=== PATIENT | male | born 1945 | race Caucasian/White ===

== ENCOUNTER → 2016-11-09 | Outpatient (CLI) | payer MEDICARE, OTHER ==
[~2016-11-09] MED LIST: /ADVA50050; /ADVA50050 IN; /AMIO20TA; /AMIO20TA PO; /BISO10TA; /TAMS4CA; /TAMS4CA OR; /TIOT18INH; /WARF5TA; ACET300T PO; ACET65TA; ACET65TA OR; ALLO100T; ALLO100T OR; ALLO300T; AMBI10TA OR; AMBI12.52 PO; AVANDAMET; Albuterol; BETAMETHASONE VAL TOP; BIMA01SOL OU; CALC0.25 PO; CAPTO25TA PO; CARD60TA; CLOP75TA2 PO; COLA100C2 PO; COMBAER6 IN; COZA25TA8; COZA50TA18 OR; DEMA20TA; DEXI30CA PO; DRIS1CAP PO; EYETAB PO; GEMF600T; GEMF600T OR; GLUC850T OR; IMDU30TA PO; LASI80TA; LISI10TA4; LOPR50TA PO; LOVA1CAP16 PO; MECL12.5 OR; MOME50SP; NIAS500T2; NITR0.4S SL; NORV5TAB OR; OMACOR; POTA20TA2 PO; PRED10TA2; PRIL40CA OR; RANI150T PO; ROPI1TAB PO; SENO8.6T5 OR; SENOKOT S; SPIR25TA2 PO; TORS20TA2; TORS20TA2 OR; TORS20TA2 PO; TYLE325T5 PO; VITA250T OR; ZEGERID; atorvastatin PO; omega 3 OR
--- NOTE | 2016-11-13 13:45 | SLEEPCENT ---
DATE OF STUDY: 11/09/2016 ORDERING PROVIDER: Kingsley Quiroz MD Nocturnal polysomnography was performed for the retitration of pressure therapy in this patient with obstructive sleep apnea syndrome, currently utilizing bilevel pressure 10 over 6. For testing, a ResMed Quattro full face mask of medium size was used. Initial pressure of 10 over 6 was applied to the surface, and the lights were extinguished. 6 hours and 24 minutes of data were reviewed. There were only 54 minutes of sleep identified. Sleep latency was normal at 35 minutes. Rapid eye movement (REM) sleep was not achieved. Overall sleep architecture was poor. There was a prolonged period of awake between 11 p.m. and 1 a.m. and again between 1:15 and 2. Overall sleep efficiency was, therefore, very diminished at 14.3%. The patient's electrocardiogram (EKG) showed a sinus rhythm with 1st-degree AV block. Average heart rate 70 beats per minute. Electroencephalogram (EEG) showed coarsening in background consistent with the patient's symptom of persistent pain. No focal events were identified. Persistence of apneic events prompted an increase in bilevel pressure. Despite titration to higher pressures, good sleep progression was not established. Best sleep during this study was seen on a bilevel device inspiratory pressure 16 over expiratory pressure of 12. IMPRESSION: Obstructive sleep apnea syndrome (G47.33). RECOMMENDATION: The patient may benefit from an increase in pressure therapy to 16 over 12. However, given the minimal sleep available during this study and the patient's persistent pain, retesting once pain control has been achieved is advised.
== END ==
LOC: M SLEEP 19:08
PROVIDERS: ATTEND Nurse Practitioner Adult Health
DX: G47.33 Obstructive sleep apnea (adult) (pediatric) (principal)

== ENCOUNTER → 2016-11-11 | Outpatient (CLI) | payer MEDICARE, OTHER ==
--- NOTE | 2016-11-11 10:38 | REP ---
Clinical: Anemia. Technique: PA and lateral. Comparison: 06/21/2016. Findings: Mediastinum and cardiac silhouette are stable. Pacemaker unchanged in position. Lung uriarte demonstrate chronic bibasilar changes without obvious acute consolidation, effusion, or pneumothorax. Skeletal structures intact. Impression: Chronic-appearing changes. No obvious acute cardiopulmonary process. Signed by Gerry Melendez MD 11/11/2016 10:29 A
[2016-11-11 10:42] LABS: MEAN CORPUSCULAR HGB CONC 32.6 g/dl (32.0-36.5); MEAN CORPUSCULAR VOLUME 95.1 fl (80.0-96.0); RED CELL DISTRIBUTION WIDTH 15.7 % (11.5-14.5); WHITE BLOOD COUNT 8.6 K/mm3 (4.0-10.0)
[2016-11-11 11:29] LABS: ALBUMIN 3.8 GM/DL (3.2-5.2); ALBUMIN/GLOBULIN RATIO 1.19 (1.00-1.93); BILIRUBIN,TOTAL 0.5 MG/DL (0.2-1.0); CALCIUM LEVEL 9.4 MG/DL (8.8-10.2); CREATININE FOR GFR 2.09 MG/DL (0.70-1.30); GLOMERULAR FILTRATION RATE 33.3 (>42); POTASSIUM SERUM 4.1 MEQ/L (3.5-5.1)
== END ==
LOC: M LAB 09:29
PROVIDERS: ATTEND Family Medicine
DX: E03.9 Hypothyroidism, unspecified (principal); D64.9 Anemia, unspecified; Z79.899 Other long term (current) drug therapy

== ENCOUNTER → 2017-02-24 | Outpatient (CLI) | payer MEDICARE, OTHER ==
--- NOTE | 2017-02-24 15:06 | REP ---
Chest two views HISTORY: Heart failure Comparison: 11/11/2016 An increase in interstitial markings is present in the lower lobes consistent with chronic interstitial change. The cardiac silhouette is enlarged. The pulmonary vasculature is normal in appearance. The bony structure is intact. Cardiac pacemaker is present. Impression 1. Chronic interstitial change. 2. Cardiomegaly. Signed by Flako Graves MD 02/24/2017 08:02 A
[2017-02-24 17:01] LABS: MEAN CORPUSCULAR HEMOGLOBIN 30.2 pg (27.0-33.0); MEAN CORPUSCULAR HGB CONC 32.3 g/dl (32.0-36.5); MEAN CORPUSCULAR VOLUME 93.4 fl (80.0-96.0); RED CELL DISTRIBUTION WIDTH 14.7 % (11.5-14.5); WHITE BLOOD COUNT 7.4 K/mm3 (4.0-10.0)
[2017-02-24 17:04] LABS: CALCIUM LEVEL 8.3 MG/DL (8.8-10.2); CREATININE FOR GFR 1.73 MG/DL (0.70-1.30); GLOMERULAR FILTRATION RATE 41.4 (>42)
[2017-02-24 17:05] LABS: ALBUMIN 3.4 GM/DL (3.2-5.2); ALBUMIN/GLOBULIN RATIO 1.06 (1.00-1.93); BILIRUBIN,TOTAL 0.6 MG/DL (0.2-1.0); MAGNESIUM LEVEL 2.1 MG/DL (1.8-2.4); TOTAL PROTEIN 6.6 GM/DL (6.4-8.2)
== END ==
LOC: M RAD 06:31
PROVIDERS: ATTEND Physician Assistant
DX: I25.10 Atherosclerotic heart disease of native coronary artery without angina pectoris (principal); I50.32 Chronic diastolic (congestive) heart failure; I48.0 Paroxysmal atrial fibrillation; I51.7 Cardiomegaly; E78.2 Mixed hyperlipidemia

== ENCOUNTER 2017-03-30 11:29 | Inpatient (IN) | payer MEDICARE, OTHER ==
[~2017-03-30] VITALS: Ht 170.2 cm; Wt 112.2 kg
[2017-03-30] MEDS ORDERED: MIRA3350 PO (11:54)
[2017-03-30] MEDS ORDERED: TORS100T PO ×3 (11:54→17:07)
[2017-03-30] MEDS ORDERED: NITR4TASL SL ×2 (11:54→17:07)
[2017-03-30] MEDS ORDERED: ERGO500014 PO (11:54)
[2017-03-30] MEDS ORDERED: ARTISOL2 OP (11:55)
[2017-03-30] MEDS ORDERED: LEVO100T5 PO (11:55)
[2017-03-30] MEDS ORDERED: HYDR-3719 PO ×3 (11:55→17:07)
[2017-03-30] MEDS ORDERED: FERR325T88 PO (11:55)
[2017-03-30 12:56] LABS: BASO % 0.3 % (0.0-1.0); EOS # 0.1 K/mm3 (0.0-0.50); EOS % 1.1 % (0.0-3.0); LARGE UNSTAINED CELL # 0.2 K/mm3 (0.0-0.4); LARGE UNSTAINED CELL % 1.8 % (0.0-4.0); LYMPH # 1.8 K/mm3 (1.5-4.5); LYMPH % 16.6 % (24.0-44.0); MEAN CORPUSCULAR HEMOGLOBIN 31.8 pg (27.0-33.0); MEAN CORPUSCULAR HGB CONC 34.4 g/dl (32.0-36.5); MEAN CORPUSCULAR VOLUME 92.7 fl (80.0-96.0); MONO # 0.6 K/mm3 (0.0-0.8); MONO % 6.2 % (0.0-5.0); NEUTROPHILS # 7.3 K/mm3 (1.8-7.7); PLATELET COUNT, AUTOMATED 181 k/mm3 (150-450); RED CELL DISTRIBUTION WIDTH 15.4 % (11.5-14.5); WHITE BLOOD COUNT 9.9 K/mm3 (4.0-10.0)
[2017-03-30] MEDS ORDERED: methylPREDNISolone INJ 125 MG/2 ML VIAL (J2930) IV ONE (13:00)
[2017-03-30] MEDS: IPRATROPIUM 0.5MG/ALBUTEROL 2.5MG INH SOL UD 3ML (DUONEB)(J7620) NEB PRN ×3 (13:12→13:37)
--- NOTE | 2017-03-30 13:18 | REP ---
REASON: Cough and dyspnea. COMPARISON: 02/24/2017 The technique utilized in obtaining the radiograph has magnified the cardiac silhouette and accentuated the interstitial markings. Dual-chamber bipolar pacemaker device, status quo. Previous median sternotomy and cardiomegaly, status quo. Increased right hilar fullness compared to the prior exam with chronic fibrotic changes, particularly at the lung bases. There is no change in the osseous structures. IMPRESSION: Possible right infrahilar pneumonia or adenopathy. It is difficult to evaluate on this limited portable exam. There are other findings as described above representing chronic change. Consider followup with chest CT if clinically relevant. Signed by Luis Carlos Cook DO 03/30/2017 03:22 P
[2017-03-30 13:22] LABS: ABG BASE EXCESS 0.3 (-2.0-2.0); ABG HCO3 24.4 MEQ/L (22.0-26.0); ABG PARTIAL PRESSURE CO2 37.5 mmHg (35.0-45.0); ABG PARTIAL PRESSURE O2 55.8 mmHg (75.0-100.0); ABG STANDARD HCO3 24.6 MEQ/L (22.0-26.0); ABG TOTAL CO2 25.5 MEQ/L (23.0-31.0); ABG pH (ARTERIAL) 7.431 UNITS (7.350-7.450)
[2017-03-30 13:28] LABS: ALBUMIN 3.3 GM/DL (3.2-5.2); ALBUMIN/GLOBULIN RATIO 1.03 (1.00-1.93); BILIRUBIN,DIRECT 0.2 MG/DL (0.0-0.2); BILIRUBIN,TOTAL 0.6 MG/DL (0.2-1.0); CALCIUM LEVEL 8.7 MG/DL (8.8-10.2); CREATININE FOR GFR 1.9 MG/DL (0.70-1.30); GLOMERULAR FILTRATION RATE 37.2 (>42); POTASSIUM SERUM 3.9 MEQ/L (3.5-5.1); TOTAL PROTEIN 6.5 GM/DL (6.4-8.2)
[2017-03-30 15:14] VITALS: O2SAT 85
[2017-03-30] MEDS ORDERED: IPRATROPIUM 0.5MG/ALBUTEROL 2.5MG INH SOL UD 3ML (DUONEB)(J7620) As Ordered ONE (15:25)
[2017-03-30] MEDS ORDERED: ALBUTEROL SULFATE 2.5 MG/0.5 ML INH NEB SOLN INH ONE (15:30)
[2017-03-30] MEDS ORDERED: IPRATROPIUM 0.5MG/ALBUTEROL 2.5MG INH SOL UD 3ML (DUONEB)(J7620) NEB ONE (15:45)
[2017-03-30] MEDS ORDERED: cefTRIAXone SOD 1 GM in D5W MINI-BAG PLUS 50 ML IV ONE (16:00)
[2017-03-30] MEDS ORDERED: AZITHROMYCIN INJ 500 MG, VIAL MATE ADAPTER 1 EACH in D5W 250 ML IV ONE (16:00)
--- NOTE | 2017-03-30 16:13 | REP ---
CT CHEST WITHOUT IV CONTRAST: CT chest was performed without IV contrast with sagittal and coronal reconstruction images. Comparison made with prior study of 01/09/2014. There are mild bibasilar infiltrates and atelectasis, right greater than left. There are small bilateral effusion, right greater than left. Heart is upper limits of normal in size. There is no pericardial effusion. No gross adenopathy is seen. There are moderate atherosclerotic calcifications of the thoracic aorta. There are degenerative changes of the spine. Visualized upper abdominal structures are grossly unremarkable. There are a couple of tiny calcified granulomas in the lungs with scattered fibrotic changes. IMPRESSION: Mild bibasilar infiltrates/atelectasis with small effusions, right greater than left. No gross adenopathy. Signed by Davion Garrett MD 03/30/2017 04:20 P
--- NOTE | 2017-03-30 16:32 | HPEPDOC ---
General Date of Admission 03/30/17 4:20pm Chief Complaint The patient is a 71-year-old male admitted with a reason for visit of Difficulty Breathing. Source: Patient Exam Limitations: No limitations Timing/Duration: Week(s) (4) Severity: Moderate Associated Symptoms: Chest Pain, Cough, Shortness of breath History of Present Illness 71-year old male for one month history of worsening shortness of breath. Patient states he had a cough productive of brown sputum which has improved. He states roughly one month ago he had a 'breathing test' which appears to be a sleep study. He states he uses a 'breathing machine' at night, which appears to be CPAP, and states he is only partially compliant with secondary to discomfort. He states he sleeps with head of bed elevated, and 2 pillows, but it appears this has been chronic for the past year. He states he was advised to implement these sleep modifications by his PCP to alleviate pain from his hernia. He states he also had an exercise stress test one month ago, which as per patient showed no significant changes. He does not use supplemental oxygen at home. PCP-Dr. Meneses, supply assistant-Dr. Swan, [employer]-. Home Medications Scheduled (Dexilant) 30 Mg Cap, 30 MG PO DAILY, (Reported) Acetaminophen/Hydrocodone (Hydrocodone/Acetaminophen 10-325 mg) 1 Tab Tab, 1 TAB PO BID, (Reported) Amlodipine Besylate (Amlodipine Besylate) 10 Mg Tab, 10 MG PO DAILY, (Reported) Artificial Tears (Artificial Tears) 1.4 % Lara, 1 DROP OU QHS, (Reported) Atorvastatin Calcium (Atorvastatin Calcium) 80 Mg Tab, 80 MG PO QPM, (Reported) Bimatoprost (Lumigan) 50 Drop/2.5 Ml Lara, 1 DROP OU QHS, (Reported) Calcitriol (Rocaltrol) 0.5 Mcg Cap, 0.5 MCG PO DAILY, (Reported) Clopidogrel Bisulfate (Plavix) 75 Mg Tab, 75 MG PO QPM, (Reported) Docusate Sodium (Colace) 100 Mg Cap, 100 MG PO BID, (Reported) Ergocalciferol (Vitamin D) 50,000 Unit Cap, 50,000 UNIT PO Q2WK, (Reported) TAKES EVERY OTHER SUNDAY Ferrous Sulfate (Ferrous Sulfate) 325 Mg Tab, 325 MG PO DAILY, (Reported) Isosorbide Mononitrate (Isosorbide Mononitrate ER) 30 Mg Tab, 30 MG PO DAILY, ( Reported) Levothyroxine Sodium (Levoxyl) 100 Mcg Tab, 100 MCG PO DAILY, (Reported) Ropinirole Hydrochloride (Ropinirole HCl) 1 Mg Tab, 1 MG PO QAM, (Reported) Ropinirole Hydrochloride (Ropinirole HCl) 1 Mg Tab, 2 MG PO QHS, (Reported) Spironolactone (Spironolactone) 25 Mg Tab, 25 MG PO DAILY, (Reported) Torsemide (Torsemide) 100 Mg Tab, 100 MG PO QAM, (Reported) Torsemide (Torsemide) 100 Mg Tab, 50 MG PO QPM, (Reported) Zolpidem Tartrate (Zolpidem Tartrate) 10 Mg Tab, 10 MG PO QHS, (Reported) Scheduled PRN Acetaminophen/Hydrocodone (Hydrocodone/Acetaminophen 10-325 mg) 1 Tab Tab, 1 TAB PO DAILY PRN for PAIN, (Reported) Calcium Carbonate (Tums) 500 Mg Chw, 500 MG PO PRN PRN for HEARTBURN/INDIGESTION , (Reported) Nitroglycerin (Nitrostat) 0.4 Mg Subl, 0.4 MG SL Q5MP PRN for CHEST PAIN, ( Reported) Polyethylene Glycol (Miralax) 1 Pow Pow, 17 GM PO DAILY PRN for CONSTIPATION, ( Reported) Simethicone (Gas-X) 80 Mg Chw, 80 MG PO PRN PRN for GAS PAIN, (Reported) Allergies Coded Allergies: Bisoprolol (Verified Allergy, Unknown, 01/31/13) Aspirin (Verified Adverse Reaction, Mild, VOMITS, 01/31/13) Past Medical History Medical History 1. CAD/CABG - 3vessel disease - 1992 2. PPM - 2013 - indication not clear 3. HTN 4. DM - controlled with diet as per patient 5. Dyslipidemia 6. Hypothyroidism 8. CHF - unknown type - records to be obtained 9. TOMMY - recent diagnosis - uses BiPAP, not fully compliant 10. History of nicotine abuse Social History * Smoker: former Smoker Alcohol: Denies Drugs: denies Review of Symptoms Constitutional: Denies: Chills, Fever, Malaise, Night Sweats, Weakness, Fatigue , Weight Loss, Lethargy, Other Eyes: Denies: Pain, Vision change, Conjunctivae inflammation, Eyelid inflammation, Redness, Other ENT: Denies: Head Aches, Ear Pain, Dysphagia, Sinus Congestion, Post Nasal Drip , Sore Throat, Epistaxis, Other Symptoms Skin: Denies: Rash, Lesions, Jaundice, Bruising, Itching, Dry, Breakdown, Nail Changes, Other Pulmonary: Reports: Dyspnea, Cough, Pleuritic Chest Pain, Denies: Other Symptoms Cardiovascular: Denies: Chest Pain, Palpitations, Orthopnea, Paroxysmal Noc. Dyspnea, Edema, Lt Headedness, Other Symptoms Gastrointestinal: Denies: Nausea, Vomiting, Abdominal Pain, Diarrhea, Constipation, Melena, Hematochezia, Other Symptoms Genitourinary: Denies: Dysuria, Frequency, Incontinence, Hematuria, Retention, Other Symptoms Hematologic: Denies: Bruising, Bleeding Excessively, Petecchia, Purpura, Enlarged Lymph Nodes, Other Hematologic Endocrine: Denies: Polydipsia, Polyphagia, Polyuria, Heat Intolerance, Cold Intolerance, Other Endocrine Sx Physical Examination General Exam: Positive: Alert, Cooperative, No Acute Distress Eye Exam: Positive: PERRLA, Conjunctiva & lids normal, EOMI, Negative: Sclera icteric ENT Exam: Positive: Atraumatic Neck Exam: Positive: Supple Chest Exam: Positive: Normal air movement, Wheezing, Other (bilateral crackles , mild expiratory wheezes) Heart Exam: Positive: Rate Normal, Regular Rhythm Telemetry: Positive: No significant arrhythmia Abdomen Exam: Positive: Normal bowel sounds, Soft, Other (obese), Negative: Tenderness Extremity Exam: Positive: Edema Psych Exam: Positive: Oriented x 3 Vital Signs Vital Signs Date Time Temp Pulse Resp B/P (MAP) Pulse Ox O2 Delivery O2 Flow Rate FiO2 03/30/17 15:14 85 Room Air 03/30/17 14:32 190/76 (114) 03/30/17 14:29 70 20 03/30/17 13:15 3.0 95 03/30/17 11:30 98.7 Laboratory Data Labs 24H Laboratory Tests 2 03/30/17 12:43: White Blood Count 9.9, Red Blood Count 4.07L, Hemoglobin 13.0L, Hematocrit 37.7L , Mean Corpuscular Volume 92.7, Mean Corpuscular Hemoglobin 31.8, Mean Corpuscular Hemoglobin Concent 34.4, Red Cell Distribution Width 15.4H, Platelet Count 181, Neutrophils (%) (Auto) 74.0H, Lymphocytes (%) (Auto) 16.6L, Monocytes (%) (Auto) 6.2H, Eosinophils (%) (Auto) 1.1, Basophils (%) (Auto) 0.3 , Neutrophils # (Auto) 7.3, Lymphocytes # (Auto) 1.8, Monocytes # (Auto) 0.6, Eosinophils # (Auto) 0.1, Basophils # (Auto) 0.0, Large Unclassified Cells % 1.8 , Large Unclassified Cells # 0.2, D-Dimer, Quantitative 436.0, Anion Gap 7L, Glomerular Filtration Rate 37.2L, Lactic Acid Level 1.5, Calcium Level 8.7L, Aspartate Amino Transf (AST/SGOT) 19, Alanine Aminotransferase (ALT/SGPT) 34, Alkaline Phosphatase 70, Total Bilirubin 0.6, Direct Bilirubin 0.2, Total Creatine Kinase 52, Creatine Kinase MB 1.4, Creatine Kinase MB Relative Index 2.69, Troponin I 0.04, B-Type Natriuretic Peptide 461H, Total Protein 6.5, Albumin 3.3, Albumin/Globulin Ratio 1.03 03/30/17 13:13: Blood Gas Bicarbonate Standard 24.6, Arterial Blood pH 7.431, Arterial Blood Partial Pressure CO2 37.5, Arterial Blood Partial Pressure O2 55.8L, Arterial Blood Total CO2 25.5, Arterial Blood HCO3 24.4, Arterial Blood Base Excess 0.3, Arterial Blood Oxygen Saturation 88.7L CBC/BMP Laboratory Tests 03/30/17 12:43 Red Blood Count 4.07 L, Mean Corpuscular Volume 92.7, Mean Corpuscular Hemoglobin 31.8, Mean Corpuscular Hemoglobin Concent 34.4, Red Cell Distribution Width 15.4 H, Neutrophils (%) (Auto) 74.0 H, Lymphocytes (%) (Auto ) 16.6 L, Monocytes (%) (Auto) 6.2 H, Eosinophils (%) (Auto) 1.1, Basophils (%) (Auto) 0.3, Neutrophils # (Auto) 7.3, Lymphocytes # (Auto) 1.8, Monocytes # ( Auto) 0.6, Eosinophils # (Auto) 0.1, Basophils # (Auto) 0.0 Microbiology Microbiology 03/30/17 Blood Culture, Received Pending 03/30/17 Blood Culture, Received Pending Problems (1) Hypoxia Status: Acute Response to Treatment: Progressing Discussed With: Patient Problem Specific Plan: Monitor Clinically, Repeat Labs, Repeat Tests Problem Text: Likely secondary to decompensated CHF. Telemetry monitoring, fluid restriction, IV lasix, I'O's, daily weights, TTE, serial cardiac markers. (2) CAD (coronary artery disease) Status: Chronic Discussed With: Patient Problem Text: s/p cabg with triple vessel disease 1992 Continue plavix, imdur, lipitor, captopril (3) HTN (hypertension) Status: Chronic Discussed With: Patient Problem Specific Plan: Monitor Clinically Problem Text: continue norvasc, imdur, captopril (4) Diabetes Status: Chronic Discussed With: Patient Problem Specific Plan: Repeat Labs Problem Text: patient states has been controlled with diet. continue modified diet for now. (5) Dyslipidemia Status: Chronic Problem Text: continue lipitor 80 (6) Hypothyroidism Status: Chronic Discussed With: Patient Problem Text: continue synthroid Plan / VTE VTE Prophylaxis Ordered?: Yes (mechanical) Plan Diet: Continue Current Activity: Continue Current Therapy: PT Respiratory: Wean Oxygen Diagnostics: Check Labs, Repeat Labs in AM, TTE MIKE RUDOLPH MD Mar 30, 2017 16:32
[2017-03-30] MEDS ORDERED: PLAV75TA38 PO (16:58)
[2017-03-30] MEDS ORDERED: AMLO10TA2 PO (16:58)
[2017-03-30] MEDS ORDERED: ALLO10TA PO (16:58)
[2017-03-30] MEDS ORDERED: CAPT125TA PO (16:58)
[2017-03-30] MEDS ORDERED: ARTI99.0 OU (16:58)
[2017-03-30] MEDS ORDERED: ZOLP10TA2 PO (16:58)
[2017-03-30] MEDS ORDERED: ROCA0.5C PO (16:58)
[2017-03-30] MEDS ORDERED: VITA50003 PO (16:59)
[2017-03-30] MEDS ORDERED: COLA100C3 PO (16:59)
[2017-03-30] MEDS ORDERED: DEXI30CA PO (16:59)
[2017-03-30] MEDS ORDERED: TUMS500C PO (17:07)
[2017-03-30] MEDS ORDERED: POTA10CA PO (17:07)
[2017-03-30] MEDS ORDERED: SPIR25TA2 PO (17:07)
[2017-03-30] MEDS ORDERED: ISOS30TA4 PO (17:07)
[2017-03-30] MEDS ORDERED: FERR325T PO (17:07)
[2017-03-30] MEDS ORDERED: ATOR1TAB18 PO (17:07)
[2017-03-30] MEDS ORDERED: MIRA33504 PO (17:07)
[2017-03-30] MEDS ORDERED: LEVO100T54 PO (17:07)
[2017-03-30] MEDS ORDERED: BIMA01SOL OU (17:07)
[2017-03-30] MEDS ORDERED: ROPI1TAB PO ×2 (17:07)
[2017-03-30] MEDS ORDERED: GAS-80CH PO (17:07)
[2017-03-30] MEDS ORDERED: NITROGLYCERIN 0.4 MG SUBL TABLET SL PRN (17:15)
[2017-03-30] MEDS: FUROSEMIDE 40 MG/4 ML VIAL (J1940) IV SCH ×2 (20:30→20:58)
[2017-03-30 20:45] VITALS: BP 162/58
[2017-03-30 20:59] VITALS: BP 162/58
[2017-03-30] MEDS ORDERED: POLYVINYL ALCOHOL OPHTH SOLN 15 ML(LIQUITEARS) OU SCH (21:00)
[2017-03-30] MEDS ORDERED: ATORVASTATIN 20 MG TAB PO SCH (21:00)
[2017-03-30] MEDS ORDERED: rOPINIRole 1MG TAB PO SCH (21:00)
[2017-03-30] MEDS ORDERED: DOCUSATE SODIUM 100 MG CAP PO SCH (21:00)
[2017-03-30] MEDS ORDERED: zolPIDEM TARTRATE 10MG TAB PO SCH (21:00)
[2017-03-30] MEDS ORDERED: CLOPIDOGREL 75 MG TAB PO SCH (21:00)
[2017-03-30] MEDS ORDERED: CAPTOpril 12.5 MG TAB PO SCH (21:00)
[2017-03-30] MEDS ORDERED: PERCOCET 5MG/325MG TAB PO PRN ×2 (21:15)
[2017-03-30 23:00] VITALS: BP 170/50
[2017-03-30 23:45] VITALS: BP 160/54
[2017-03-31] MEDS: FUROSEMIDE 40 MG/4 ML VIAL (J1940) IV SCH (00:40)
--- NOTE | 2017-03-31 02:23 | DSES ---
DATE OF ADMISSION: 03/30/2017 DATE OF DISCHARGE: 03/31/2017 DISCHARGE DIAGNOSIS: Unstable angina. SECONDARY DIAGNOSES: 1. Decompensated congestive heart failure. 2. Obstructive sleep apnea. 3. Hypoxia. 4. Hypertension. 5. Coronary artery disease. 6. Diabetes. 7. Dyslipidemia. 8. Hypothyroidism. 9. Atrial fibrillation with sick sinus syndrome. HOSPITAL COURSE: The patient presented on the afternoon of 03/30/2017, with progressively worsening shortness of breath with rust-colored sputum. He was recently diagnosed with obstructive sleep apnea. He did complain of orthopnea. He also described intermittent compliance with medications and continuous positive airway pressure (CPAP). He tells me that he had also reportedly had an exercise stress test done 1 month ago, which showed no significant change. This was done through his coat agent, Dr. Swan. The patient was diagnosed with decompensated congestive heart failure. He has a history of congestive heart failure with preserved ejection fraction. He was admitted to the progressive care unit and was diuresed. The patient had been experiencing burning pain in his chest this afternoon while walking to the bank, alleviated with rest. SUBJECTIVE: The patient reports that he is feeling better after diuresis, but still having shortness of breath. He denies burning in the chest at rest, but tells me if he were to get up and walk right now it would certainly come back. He denies lightheadedness, dizziness, nausea, vomiting, fevers or chills. OBJECTIVE: VITAL SIGNS: Temperature 99.1, pulse 72, respiratory rate 20, blood pressure 160/54, oxygen saturation 96% on nasal CPAP. GENERAL: He is an obese, elderly man lying in bed at a 45-degree angle. He appears mildly tachypneic, but no acute distress. HEENT: Cranial nerves II-XII are grossly intact. Difficult to assess for elevation of central venous pressure (CVP) secondary to body habitus and a large neck. CARDIOVASCULAR EXAMINATION: S1, S2. He is not tachycardic. RESPIRATORY EXAMINATION: Diminished breath sounds at the bases and distant secondary to body habitus. ABDOMEN: Grossly obese. EXTREMITIES: No clubbing, cyanosis. There is edema bilaterally. LABORATORY STUDIES: WBC 9.9, hemoglobin 13.0, hematocrit 37.7, platelet count 181. Chemistry panel: Sodium 142, potassium 3.9, chloride 106, bicarbonate 29, BUN 45, creatinine 1.9 which approximately is baseline. His first set of troponin was 0.04, a repeat second set was 14.9. BNP was slightly elevated at 461. Blood cultures were drawn. IMAGING: He did have a CT scan of the chest, which revealed mild bibasilar infiltrates/atelectasis with small effusions, right greater than left. No gross adenopathy. ASSESSMENT AND PLAN: This is a 71-year-old man with likely unstable angina and decompensated congestive heart failure secondary to unstable angina. Unstable angina. The patient's EKG is in atrial (A) paced rhythm, but I do appreciate ST depressions in V3, V4 in the stat EKG repeated at this time. Although he is clinically feeling better at rest, given his quickly rising troponin, there is certainly concern for unstable angina and non-ST elevation myocardial infarction given his ST depressions, although they are in the setting of an A paced rhythm. I did speak with Dr. Ortiz, the interventionalist microphone boom operator for [facility], who agrees and has accepted the patient in transfer. The hospital does have beds and paperwork has been filled out at discharge has been completed. I did discuss the transfer with the patient and necessity for it and also the possibility that he may require hemodialysis following cardiac catheterization secondary to his chronic kidney disease, which is at its baseline. He is aware of all this and understands the risks and benefits and is agreeable for transfer. MEDICATIONS: At the time of discharge: - hydrocodone/acetaminophen 10/325 one tablet twice a day - Norvasc 10 mg daily - artificial tears one drop each eye at bedtime - atorvastatin 80 mg every evening - Lumigan one drop each eye daily at bedtime - calcitriol 0.5 mcg daily - Tums 500 mg as needed for heartburn and indigestion - Plavix 75 mg every evening - Dexilant 30 mg daily - Colace 100 mg twice a day - vitamin D 50,000 units every 2 weeks on Sunday - ferrous sulfate 325 mg daily - isosorbide mononitrate 30 mg daily - Synthroid 100 mcg daily - Nitrostat 0.4 mg sublingually every 5 minutes as needed for chest pain - MiraLAX powder 17 grams daily as needed for constipation - ropinirole 1 mg every morning daily and 2 mg at bedtime - simethicone 80 mg as needed for gas pain - aldactone 25 mg daily - torsemide 100 mg every morning and 50 mg every evening - Ambien 10 mg nightly For the time being he should hold his normal allopurinol 200 mg daily, captopril 12.5 mg at bedtime as he is likely to undergo cardiac catheterization. Greater than 1 hour spent organizing safe disposition and transfer of care.
[2017-03-31 03:09] VITALS: BP 180/74
[2017-03-31] MEDS ORDERED: LEVOTHYROXINE 0.1 MG TAB (100 MCG) PO SCH (06:00)
--- NOTE | 2017-03-31 07:26 | ECGEPIP ---
Stationary ECG Study [facility] - ED Test Date: 2017-03-30 Pat Name: MIRTA DICKSON Department: Room: - Gender: M Court Assistant: chaparrita : 1945 Requested By: FELIX Sahu Order Number: [id number] Reading MD: Alda Chatman Measurements Intervals [place] Rate: 69 P: 253 LA: 258 QRS: 77 QRSD: 112 T: 255 QT: 414 QTc: 446 Interpretive Statements ELECTRONIC ATRIAL PACEMAKER ELECTRONIC VENTRICULAR PACEMAKER ABNORMAL RHYTHM ECG NSTTW ABNORMALITY Electronically Signed On 03-31-2017 7:26:05 EDT by Alda Chatman
[2017-03-31] MEDS ORDERED: amLODIPine 10 MG TAB PO SCH (09:00)
[2017-03-31] MEDS ORDERED: ISOSORBIDE MON. (IMDUR) 30 MG XR TAB PO SCH (09:00)
[2017-03-31] MEDS ORDERED: CALCITRIOL 0.25 MCG CAP (S0169) PO SCH (09:00)
[2017-03-31] MEDS ORDERED: ALLOPURINOL 100 MG TAB PO SCH (09:00)
[2017-03-31] MEDS ORDERED: FERROUS SULFATE 325MG TAB PO SCH (09:00)
[2017-03-31] MEDS ORDERED: rOPINIRole 1MG TAB PO SCH (09:00)
--- NOTE | 2017-04-01 16:32 | ECGEPIP ---
Stationary ECG Study [facility] Test Date: 2017-03-31 Pat Name: MIRTA DICKSON Department: Room: [place] [address] Gender: M Harpsichord Maker: ARIS PEÑAB: 1945 Requested By: CHIDI KRISHNAMURTHY Order Number: [id number] Reading MD: Abelardo Parr Measurements Intervals [place] Rate: 66 P: 246 PA: 181 QRS: 78 QRSD: 92 T: 248 QT: 452 QTc: 476 Interpretive Statements ATRIAL PACED RHYTHM ST DEVIATION AND MODERATE T-WAVE ABNORMALITY, CONSIDER ANTEROLATERAL AND INFERIOR ISCHEMIA SINCE 03/30/17 T WAVE ABNORMALITIES ARE NEW Electronically Signed On 04-01-2017 16:32:11 EDT by Abelardo Parr
== END 2017-03-31 03:27 | disposition short-term general hospital (02) | DRG 291 ==
LOC: M ED 14:18 → M ED INP 16:13 → M PCU 20:41
PROVIDERS: ADMIT Internal Medicine; ATTEND Internal Medicine
DX: I13.0 Hypertensive heart and chronic kidney disease with heart failure and stage 1 through stage 4 chronic kidney disease, or unspecified chronic kidney disease (principal); I50.33 Acute on chronic diastolic (congestive) heart failure; G47.33 Obstructive sleep apnea (adult) (pediatric); E11.9 Type 2 diabetes mellitus without complications; E78.5 Hyperlipidemia, unspecified; E03.9 Hypothyroidism, unspecified; I25.10 Atherosclerotic heart disease of native coronary artery without angina pectoris; Z79.899 Other long term (current) drug therapy

== ENCOUNTER → 2017-04-09 | Outpatient (CLI) | payer MEDICARE, OTHER ==
[~2017-04-09] MED LIST changes: +ALLO10TA PO; +AMLO10TA2 PO; +ARTI99.0 OU; +ARTISOL2 OP; +ATOR1TAB18 PO; +CAPT125TA PO; +COLA100C3 PO; +ERGO500014 PO; +FERR325T PO; +FERR325T88 PO; +GAS-80CH PO; +HYDR-3719 PO; +ISOS30TA4 PO; +LEVO100T5 PO; +LEVO100T54 PO; +MIRA3350 PO; +MIRA33504 PO; +NITR4TASL SL; +PLAV75TA38 PO; +POTA10CA PO; +ROCA0.5C PO; +TORS100T PO; +TUMS500C PO; +VITA50003 PO; +ZOLP10TA2 PO
[2017-04-09 16:11] LABS: CALCIUM LEVEL 8.8 MG/DL (8.8-10.2); CREATININE FOR GFR 2.54 MG/DL (0.70-1.30); GLOMERULAR FILTRATION RATE 26.6 (>42); POTASSIUM SERUM 3.5 MEQ/L (3.5-5.1)
== END ==
LOC: M LAB 13:45
PROVIDERS: ATTEND Internal Medicine Interventional Cardiology
DX: I10 Essential (primary) hypertension (principal)

== ENCOUNTER → 2017-04-23 | Outpatient (REF) | payer MEDICARE, OTHER ==
[2017-04-23 14:53] LABS: FREE T4 1.17 NG/DL (0.76-1.46)
== END ==
LOC: M LAB REF 13:13
PROVIDERS: ATTEND Internal Medicine Nephrology
DX: E03.9 Hypothyroidism, unspecified (principal)

== ENCOUNTER → 2017-04-26 | Outpatient (CLI) | payer MEDICARE, OTHER ==
[~2017-04-26] MED LIST changes: -ATOR1TAB18 PO; +ATOR80TA59 PO; -COLA100C3 PO; +COLA100C5 PO; +DEXI30CA2 PO; +FERR1TAB8 PO; -FERR325T PO; +PLAV1TAB2 PO; -PLAV75TA38 PO; +VITA1CAP40 PO; -VITA50003 PO
[2017-04-26 14:50] LABS: BASO # 0.1 K/mm3 (0.0-0.2); BASO % 0.9 % (0.0-1.0); EOS # 0.1 K/mm3 (0.0-0.50); EOS % 1.3 % (0.0-3.0); LARGE UNSTAINED CELL # 0.3 K/mm3 (0.0-0.4); LARGE UNSTAINED CELL % 3.2 % (0.0-4.0); LYMPH # 2.2 K/mm3 (1.5-4.5); LYMPH % 24.8 % (24.0-44.0); MEAN CORPUSCULAR HGB CONC 32.5 g/dl (32.0-36.5); MEAN CORPUSCULAR VOLUME 95.3 fl (80.0-96.0); MONO # 0.5 K/mm3 (0.0-0.8); MONO % 6.1 % (0.0-5.0); NEUTROPHILS # 5.7 K/mm3 (1.8-7.7); NEUTROPHILS % 63.7 % (36.0-66.0); PLATELET COUNT, AUTOMATED 231 k/mm3 (150-450); RED CELL DISTRIBUTION WIDTH 17.7 % (11.5-14.5); WHITE BLOOD COUNT 8.9 K/mm3 (4.0-10.0)
[2017-04-26 15:28] LABS: ALBUMIN 3.6 GM/DL (3.2-5.2); CALCIUM LEVEL 8.8 MG/DL (8.8-10.2); CREATININE FOR GFR 2.1 MG/DL (0.70-1.30); GLOMERULAR FILTRATION RATE 33.1 (>42); MAGNESIUM LEVEL 2.7 MG/DL (1.8-2.4); PHOSPHORUS LEVEL 4.4 MG/DL (2.5-4.9); POTASSIUM SERUM 4.2 MEQ/L (3.5-5.1); URIC ACID 6.5 MG/DL (3.5-7.2)
== END ==
LOC: M LAB 14:02
PROVIDERS: ATTEND Internal Medicine Nephrology
DX: N18.3 Chronic kidney disease, stage 3 (moderate) (principal); N25.81 Secondary hyperparathyroidism of renal origin; M10.9 Gout, unspecified; E83.42 Hypomagnesemia

== ENCOUNTER → 2017-05-31 | Outpatient (CLI) | payer MEDICARE, OTHER ==
[2017-05-31 19:00] LABS: REASON FOR REVIEW COMPREHENSIVE REVIEW
[2017-05-31 19:02] LABS: MEAN CORPUSCULAR HEMOGLOBIN 30.4 pg (27.0-33.0); MEAN CORPUSCULAR HGB CONC 31.5 g/dl (32.0-36.5); MEAN CORPUSCULAR VOLUME 96.6 fl (80.0-96.0); PLATELET COUNT, AUTOMATED 229 k/mm3 (150-450); RETIC HEMOGLOBIN CONTENT CHr 27.5 PG (24-36); RETICULOCYTE ABSOLUTE ADVIA212 117 x10(9)/L (17-77); WHITE BLOOD COUNT 6.8 K/mm3 (4.0-10.0)
[2017-05-31 19:16] LABS: PERCENT SATURATION 4.1 % (19.7-50.0)
[2017-06-01 12:22] LABS: PRETREATED FOLATE FOR RBCFOL 18.1 NG/ML
== END ==
LOC: M SMT 15:56
PROVIDERS: ATTEND Physician Assistant
DX: D64.9 Anemia, unspecified (principal)

== ENCOUNTER 2017-06-01 10:16 | Outpatient (CLI) | payer MEDICARE, OTHER ==
[2017-06-01] MEDS ORDERED: FUROSEMIDE 100 MG/10 ML VIAL (J1940) IV ONE (11:00)
[2017-06-01] MEDS ORDERED: IRON SUCROSE 25 MG in NS 50 ML IV ONE (12:00)
[2017-06-01] MEDS ORDERED: IRON SUCROSE 475 MG in NS 250 ML IV ONE (13:00)
== END 2017-06-01 16:55 | disposition home or self-care (01) ==
LOC: M OPCLI4PV 10:16 → M MSPAV 10:17 → M OPCLI4PV 16:55
PROVIDERS: ATTEND Physician Assistant
DX: D50.9 Iron deficiency anemia, unspecified (principal); Z88.8 Allergy status to other drugs, medicaments and biological substances; Z79.899 Other long term (current) drug therapy
CPT/HCPCS: 36430; J1940; P9016

== ENCOUNTER 2017-06-04 10:41 | Outpatient (CLI) | payer MEDICARE, OTHER ==
[2017-06-04] VITALS (8 sets, daily range): BP systolic 149–176; BP diastolic 54–74
[~2017-06-04] VITALS: Ht 170.2 cm; Wt 104.5 kg
[2017-06-04] MEDS ORDERED: IRON SUCROSE 25 MG in NS 50 ML IV ONE (12:00)
[2017-06-04] MEDS ORDERED: IRON SUCROSE 475 MG in NS 250 ML IV ONE (13:15)
== END 2017-06-04 17:45 | disposition home or self-care (01) ==
LOC: M OPCLIPED 10:41 → M PED 10:44 → M OPCLIPED 17:45
PROVIDERS: ATTEND Physician Assistant
DX: D50.9 Iron deficiency anemia, unspecified (principal); Z88.8 Allergy status to other drugs, medicaments and biological substances; Z79.899 Other long term (current) drug therapy
CPT/HCPCS: 96365; 96366; J1756

== ENCOUNTER → 2017-06-05 | Outpatient (CLI) | payer MEDICARE, OTHER ==
[2017-06-05 13:56] LABS: MEAN CORPUSCULAR HEMOGLOBIN 30.3 pg (27.0-33.0); MEAN CORPUSCULAR HGB CONC 32.5 g/dl (32.0-36.5); MEAN CORPUSCULAR VOLUME 93.2 fl (80.0-96.0); RED CELL DISTRIBUTION WIDTH 16.2 % (11.5-14.5); WHITE BLOOD COUNT 11.2 K/mm3 (4.0-10.0)
== END ==
LOC: M SMT 08:58
PROVIDERS: ATTEND Physician Assistant
DX: D50.8 Other iron deficiency anemias (principal)

== ENCOUNTER → 2017-07-04 | Outpatient (CLI) | payer OTHER ==
[2017-07-04 13:44] LABS: MEAN CORPUSCULAR HEMOGLOBIN 30.2 pg (27.0-33.0); MEAN CORPUSCULAR HGB CONC 32.9 g/dl (32.0-36.5); MEAN CORPUSCULAR VOLUME 91.8 fl (80.0-96.0); RED CELL DISTRIBUTION WIDTH 16.3 % (11.5-14.5)
[2017-07-04 13:50] LABS: ALBUMIN 3.7 GM/DL (3.2-5.2); CALCIUM LEVEL 10.6 MG/DL (8.8-10.2); CREATININE FOR GFR 2.57 MG/DL (0.70-1.30); GLOMERULAR FILTRATION RATE 26.2 (>42); PHOSPHORUS LEVEL 4.1 MG/DL (2.5-4.9); POTASSIUM SERUM 4.4 MEQ/L (3.5-5.1)
== END ==
LOC: M SMT 09:39
PROVIDERS: ATTEND Physician Assistant
DX: D50.8 Other iron deficiency anemias (principal); I50.32 Chronic diastolic (congestive) heart failure

== ENCOUNTER → 2017-10-03 | Outpatient (CLI) | payer OTHER ==
[2017-10-03 18:15] LABS: ALBUMIN 3.8 GM/DL (3.2-5.2); ALBUMIN/GLOBULIN RATIO 1.12 (1.00-1.93); BILIRUBIN,TOTAL 0.6 MG/DL (0.2-1.0); CALCIUM LEVEL 8.9 MG/DL (8.8-10.2); CREATININE FOR GFR 2.09 MG/DL (0.70-1.30); GLOMERULAR FILTRATION RATE 33.2 (>42); MAGNESIUM LEVEL 2.6 MG/DL (1.8-2.4); POTASSIUM SERUM 4.5 MEQ/L (3.5-5.1); TOTAL PROTEIN 7.2 GM/DL (6.4-8.2)
[2017-10-03 18:30] LABS: MEAN CORPUSCULAR HEMOGLOBIN 29.6 pg (27.0-33.0); MEAN CORPUSCULAR HGB CONC 32.5 g/dl (32.0-36.5); MEAN CORPUSCULAR VOLUME 91.2 fl (80.0-96.0); PLATELET COUNT, AUTOMATED 201 10^3/uL (150-450); RED CELL DISTRIBUTION WIDTH 19.3 % (11.5-14.5); WHITE BLOOD COUNT 10.3 10^3/uL (4.0-10.0)
--- NOTE | 2017-10-04 06:33 | REP ---
CHEST X-RAY: CLINICAL: Atrial fibrillation. TECHNIQUE: PA and lateral. COMPARISON: 03/30/2017. FINDINGS: Cardiomegaly is again appreciated. Pacemaker in stable position. Evidence for prior sternotomy and CABG again noted. The lung uriarte demonstrate prominent pulmonary vasculature and increased interstitial markings suggesting chronic pulmonary vascular congestion. No obvious focal consolidation or effusion. No pneumothorax. Skeletal structures are intact. IMPRESSION: Stable cardiomegaly and chronic pulmonary vascular congestion suggested. Signed by Gerry Melendez MD 10/05/2017 08:52 A
== END ==
LOC: M SMT 12:06
PROVIDERS: ATTEND Physician Assistant
DX: I48.0 Paroxysmal atrial fibrillation (principal); I50.32 Chronic diastolic (congestive) heart failure; E78.2 Mixed hyperlipidemia; D50.8 Other iron deficiency anemias

== ENCOUNTER → 2018-01-21 | Outpatient (CLI) | payer MEDICARE, OTHER ==
[2018-01-21 18:07] LABS: ALBUMIN 3.8 GM/DL (3.2-5.2); ANION GAP 8 MEQ/L (8-16); BLOOD UREA NITROGEN 83 MG/DL (7-18); CALCIUM LEVEL 11.4 MG/DL (8.8-10.2); CARBON DIOXIDE LEVEL 29 MEQ/L (21-32); CHLORIDE LEVEL 100 MEQ/L (98-107); CREATININE FOR GFR 2.89 MG/DL (0.70-1.30); GLOMERULAR FILTRATION RATE 22.8 (>42); GLUCOSE, FASTING 115 MG/DL (70-100); PHOSPHORUS LEVEL 3.5 MG/DL (2.5-4.9); POTASSIUM SERUM 4.1 MEQ/L (3.5-5.1); SODIUM LEVEL 137 MEQ/L (136-145)
[2018-01-21 18:25] LABS: HEMATOCRIT 41.2 % (42.0-52.0); HEMOGLOBIN 13.4 g/dl (14.0-18.0); MEAN CORPUSCULAR HEMOGLOBIN 30.6 pg (27.0-33.0); MEAN CORPUSCULAR HGB CONC 32.5 g/dl (32.0-36.5); MEAN CORPUSCULAR VOLUME 94.1 fl (80.0-96.0); PLATELET COUNT, AUTOMATED 195 10^3/uL (150-450); RED BLOOD COUNT 4.38 10^6/uL (4.30-6.10); RED CELL DISTRIBUTION WIDTH 15.3 % (11.5-14.5); WHITE BLOOD COUNT 10.3 10^3/uL (4.0-10.0)
== END ==
LOC: M SMT 11:35
DX: R55 Syncope and collapse (principal); I50.32 Chronic diastolic (congestive) heart failure
CPT/HCPCS: 80069

== ENCOUNTER → 2018-02-25 | Outpatient (CLI) | payer MEDICARE, OTHER ==
[2018-02-25 13:16] LABS: ALBUMIN 3.5 GM/DL (3.2-5.2); ANION GAP 9 MEQ/L (8-16); BLOOD UREA NITROGEN 70 MG/DL (7-18); CALCIUM LEVEL 8.7 MG/DL (8.8-10.2); CARBON DIOXIDE LEVEL 27 MEQ/L (21-32); CHLORIDE LEVEL 99 MEQ/L (98-107); CREATININE FOR GFR 2.39 MG/DL (0.70-1.30); GLOMERULAR FILTRATION RATE 28.4 (>42); GLUCOSE, FASTING 116 MG/DL (70-100); PHOSPHORUS LEVEL 3.4 MG/DL (2.5-4.9); POTASSIUM SERUM 4.2 MEQ/L (3.5-5.1); SODIUM LEVEL 135 MEQ/L (136-145)
== END ==
LOC: M SMT 09:20
DX: R42 Dizziness and giddiness (principal); I50.32 Chronic diastolic (congestive) heart failure
CPT/HCPCS: 80069

== ENCOUNTER 2018-03-05 21:08 | Inpatient (IN) | payer MEDICARE, OTHER ==
[2018-03-05] MEDS: ADVAIR HFA 230/21MCG INHALER INH (21:00)
[2018-03-05] MEDS: HumaLOG INSULIN (NovoLOG) PER UNIT SC (21:00)
[2018-03-05 22:09] LABS: BASO % 0.2 % (0.0-1.0); EOS % 0.2 % (0.0-3.0); HEMATOCRIT 34.4 % (42.0-52.0); IMMATURE GRANULOCYTE % 0.6 % (0-3.0); LYMPH # 0.8 10^3/uL (1.5-4.5); LYMPH % 5.1 % (24.0-44.0); MEAN CORPUSCULAR HEMOGLOBIN 30.6 pg (27.0-33.0); MEAN CORPUSCULAR VOLUME 95.6 fl (80.0-96.0); MONO # 1.6 10^3/uL (0.0-0.8); MONO % 9.9 % (0.0-5.0); NEUTROPHILS # 13.7 10^3/uL (1.8-7.7); PLATELET COUNT, AUTOMATED 160 10^3/uL (150-450); RED CELL DISTRIBUTION WIDTH 16.1 % (11.5-14.5); VENOUS BASE EXCESS -6.6 (-2.0-2.0); VENOUS HCO3 17.8 MEQ/L (23.0-27.0); VENOUS O2 SATURATION 90.9 % (60.0-80.0); VENOUS PARTIAL PRESSURE CO2 32.1 mmHg (38.0-50.0); VENOUS PARTIAL PRESSURE O2 63.1 mmHg (30.0-50.0); VENOUS PH 7.362 UNITS (7.330-7.430); VENOUS TOTAL CO2 18.8 MEQ/L (24.0-28.0); WHITE BLOOD COUNT 16.4 10^3/uL (4.0-10.0)
[2018-03-05 22:31] LABS: ANION GAP 13 MEQ/L (8-16); BLOOD UREA NITROGEN 87 MG/DL (7-18); CALCIUM LEVEL 8.5 MG/DL (8.8-10.2); CARBON DIOXIDE LEVEL 22 MEQ/L (21-32); CHLORIDE LEVEL 98 MEQ/L (98-107); CK-MB VALUE MASS 1.9 NG/ML (<3.6); CPK CREATINE PHOSPHOKINASE 91 U/L (39-308); CREATININE FOR GFR 3.34 MG/DL (0.70-1.30); GLOMERULAR FILTRATION RATE 19.3 (>42); GLUCOSE, FASTING 155 MG/DL (70-100); MB/CK RELATIVE INDEX 2.08 (< OR =4); POTASSIUM SERUM 4.6 MEQ/L (3.5-5.1); SODIUM LEVEL 133 MEQ/L (136-145); TROPONIN I 0.26 NG/ML (< 0.10)
[2018-03-05] MEDS: IPRATROPIUM 0.5MG/ALBUTEROL 2.5MG INH SOL UD 3ML (DUONEB)(J7620) NEB ×3 (23:21→23:51)
[2018-03-05] MEDS: FUROSEMIDE 100 MG/10 ML VIAL (J1940) IV (23:22)
[2018-03-06] MEDS ORDERED: GLUCOSE 4 GM CHEW TABLET PO (00:15)
[2018-03-06] MEDS ORDERED: DEXTROSE 50% 50 ML SYRINGE IV (00:15)
[2018-03-06] MEDS ORDERED: GLUCAGON FOR INJ 1 MG VIAL (J1610) SC (00:15)
[2018-03-06] MEDS ORDERED: ACETAMINOPHEN TAB 650MG DOSE (2X325MG) PO (00:15)
[2018-03-06] MEDS ORDERED: NITROGLYCERIN 0.4 MG SUBL TABLET SL (00:30)
[2018-03-06] MEDS ORDERED: IPRATROPIUM 0.5MG/ALBUTEROL 2.5MG INH SOL UD 3ML (DUONEB)(J7620) NEB (00:30)
[2018-03-06] MEDS: IPRATROPIUM 0.5MG/ALBUTEROL 2.5MG INH SOL UD 3ML (DUONEB)(J7620) NEB ×4 (01:11→20:48)
[2018-03-06 02:00] LABS: CK-MB VALUE MASS 2.1 NG/ML (<3.6); CPK CREATINE PHOSPHOKINASE 99 U/L (39-308); MB/CK RELATIVE INDEX 2.12 (< OR =4); TROPONIN I 0.43 NG/ML (< 0.10)
[2018-03-06] MEDS ORDERED: SLF 3 ML SYR IV (02:00)
[2018-03-06] MEDS: ATORVASTATIN 20 MG TAB PO ×2 (02:20→20:41)
[2018-03-06] MEDS: rOPINIRole 1MG TAB PO ×2 (02:21→20:42)
[2018-03-06] MEDS: POLYVINYL ALCOHOL OPHTH SOLN 15 ML(LIQUITEARS) OU ×2 (02:21→20:42)
[2018-03-06] MEDS: LevoFLOXacin IV 500 MG in APPROPRIATE DILUENT 1 EA IV (03:48)
[2018-03-06 05:46] LABS: CK-MB VALUE MASS 2.8 NG/ML (<3.6); CPK CREATINE PHOSPHOKINASE 101 U/L (39-308); MB/CK RELATIVE INDEX 2.77 (< OR =4); TROPONIN I 0.73 NG/ML (< 0.10)
[2018-03-06] MEDS: FUROSEMIDE 100 MG/10 ML VIAL (J1940) IV ×3 (05:55→17:25)
[2018-03-06] MEDS: HEPARIN SOD (PORCINE) 5000 UNITS/ML VIAL SC ×3 (05:56→20:42)
[2018-03-06] MEDS: LEVOTHYROXINE 88MCG TABLET (0.088 MG) PO (05:56)
[2018-03-06] MEDS: SLF 3 ML SYR IV ×3 (05:56→20:42)
[2018-03-06] MEDS: ADVAIR HFA 230/21MCG INHALER INH ×2 (07:32→21:00)
[2018-03-06 07:51] LABS: BEDSIDE GLUCOSE 125 MG/DL (83-110)
[2018-03-06] MEDS: SPIRONOLACTONE 25 MG TAB PO (08:19)
[2018-03-06] MEDS: AMIODARONE 200 MG TAB (PACERONE) PO ×2 (08:19→20:42)
[2018-03-06] MEDS: MULTIVITAMINS/MINERALS THERAP 1 TAB PO (08:19)
[2018-03-06] MEDS: HumaLOG INSULIN (NovoLOG) PER UNIT SC ×4 (08:19→20:43)
[2018-03-06] MEDS: DOCUSATE SODIUM 100 MG CAP PO ×2 (08:19→20:42)
[2018-03-06] MEDS: ALLOPURINOL 100 MG TAB PO (08:19)
[2018-03-06] MEDS: FERROUS SULFATE 325MG TAB PO (08:19)
[2018-03-06 11:33] LABS: BEDSIDE GLUCOSE 152 MG/DL (83-110)
[2018-03-06 12:29] LABS: CPK CREATINE PHOSPHOKINASE 113 U/L (39-308); TROPONIN I 0.63 NG/ML (< 0.10)
[2018-03-06 12:30] LABS: CK-MB VALUE MASS 3.7 NG/ML (<3.6); MB/CK RELATIVE INDEX 3.27 (< OR =4)
[2018-03-06] MEDS: CLOPIDOGREL 75 MG TAB PO (13:38)
[2018-03-06 16:36] LABS: BEDSIDE GLUCOSE 151 MG/DL (83-110)
[2018-03-06 21:01] LABS: BEDSIDE GLUCOSE 124 MG/DL (83-110)
[2018-03-07] MEDS: zolPIDEM TARTRATE 10MG TAB PO (01:33)
[2018-03-07] MEDS: IPRATROPIUM 0.5MG/ALBUTEROL 2.5MG INH SOL UD 3ML (DUONEB)(J7620) NEB ×4 (02:00→20:25)
[2018-03-07] MEDS: HEPARIN SOD (PORCINE) 5000 UNITS/ML VIAL SC ×3 (05:22→20:58)
[2018-03-07] MEDS: LEVOTHYROXINE 88MCG TABLET (0.088 MG) PO (05:23)
[2018-03-07] MEDS: SLF 3 ML SYR IV ×3 (05:23→20:58)
[2018-03-07] MEDS: FUROSEMIDE 100 MG/10 ML VIAL (J1940) IV ×5 (05:23→23:51)
[2018-03-07 05:34] LABS: BASO % 0.1 % (0.0-1.0); EOS # 0.1 10^3/uL (0.0-0.50); EOS % 0.5 % (0.0-3.0); HEMATOCRIT 31.6 % (42.0-52.0); HEMOGLOBIN 10.4 g/dl (13.5-17.5); IMMATURE GRANULOCYTE % 0.4 % (0-3.0); LYMPH # 0.7 10^3/uL (1.5-4.5); LYMPH % 4.7 % (24.0-44.0); MEAN CORPUSCULAR HEMOGLOBIN 30.7 pg (27.0-33.0); MEAN CORPUSCULAR HGB CONC 32.9 g/dl (32.0-36.5); MEAN CORPUSCULAR VOLUME 93.2 fl (80.0-96.0); MONO # 1.4 10^3/uL (0.0-0.8); MONO % 10.2 % (0.0-5.0); NEUTROPHILS # 11.8 10^3/uL (1.8-7.7); NEUTROPHILS % 84.1 % (36.0-66.0); PLATELET COUNT, AUTOMATED 154 10^3/uL (150-450); RED BLOOD COUNT 3.39 10^6/uL (4.30-6.10)
[2018-03-07 05:54] LABS: ALBUMIN 2.6 GM/DL (3.2-5.2); ALBUMIN/GLOBULIN RATIO 0.67 (1.00-1.93); ALKALINE PHOSPHATASE 52 U/L (45-117); ALT/SGPT 85 U/L (12-78); ANION GAP 9 MEQ/L (8-16); AST/SGOT 102 U/L (7-37); BILIRUBIN,TOTAL 0.9 MG/DL (0.2-1.0); BLOOD UREA NITROGEN 102 MG/DL (7-18); CALCIUM LEVEL 9.1 MG/DL (8.8-10.2); CARBON DIOXIDE LEVEL 26 MEQ/L (21-32); CHLORIDE LEVEL 99 MEQ/L (98-107); CREATININE FOR GFR 3.29 MG/DL (0.70-1.30); GLOMERULAR FILTRATION RATE 19.7 (>42); GLUCOSE, FASTING 101 MG/DL (70-100); MAGNESIUM LEVEL 2.9 MG/DL (1.8-2.4); POTASSIUM SERUM 4.2 MEQ/L (3.5-5.1); SODIUM LEVEL 134 MEQ/L (136-145); TOTAL PROTEIN 6.5 GM/DL (6.4-8.2)
[2018-03-07] MEDS: ALLOPURINOL 100 MG TAB PO (08:03)
[2018-03-07] MEDS: AMIODARONE 200 MG TAB (PACERONE) PO ×2 (08:03→20:52)
[2018-03-07] MEDS: SPIRONOLACTONE 25 MG TAB PO (08:03)
[2018-03-07] MEDS: HumaLOG INSULIN (NovoLOG) PER UNIT SC ×4 (08:03→20:49)
[2018-03-07] MEDS: MULTIVITAMINS/MINERALS THERAP 1 TAB PO (08:04)
[2018-03-07] MEDS: FERROUS SULFATE 325MG TAB PO (08:04)
[2018-03-07] MEDS: DOCUSATE SODIUM 100 MG CAP PO ×2 (08:04→20:52)
[2018-03-07 09:41] LABS: TROPONIN I 0.37 NG/ML (< 0.10)
[2018-03-07] MEDS: ADVAIR HFA 230/21MCG INHALER INH ×2 (11:27→21:00)
[2018-03-07] MEDS: CLOPIDOGREL 75 MG TAB PO (13:04)
[2018-03-07 19:36] LABS: BEDSIDE GLUCOSE 140 MG/DL (83-110)
[2018-03-07 20:48] LABS: BEDSIDE GLUCOSE 120 MG/DL (83-110)
[2018-03-07] MEDS: POLYVINYL ALCOHOL OPHTH SOLN 15 ML(LIQUITEARS) OU (20:51)
[2018-03-07] MEDS: rOPINIRole 1MG TAB PO (20:52)
[2018-03-07] MEDS: ATORVASTATIN 20 MG TAB PO (20:52)
[2018-03-07 22:46] LABS: ANION GAP 11 MEQ/L (8-16); BLOOD UREA NITROGEN 110 MG/DL (7-18); CALCIUM LEVEL 8.8 MG/DL (8.8-10.2); CARBON DIOXIDE LEVEL 24 MEQ/L (21-32); CHLORIDE LEVEL 99 MEQ/L (98-107); CREATININE FOR GFR 3.34 MG/DL (0.70-1.30); GLOMERULAR FILTRATION RATE 19.3 (>42); GLUCOSE, FASTING 117 MG/DL (70-100); PHOSPHORUS LEVEL 4.6 MG/DL (2.5-4.9); POTASSIUM SERUM 4.3 MEQ/L (3.5-5.1); SODIUM LEVEL 134 MEQ/L (136-145)
[2018-03-08] MEDS: FUROSEMIDE 100 MG/10 ML VIAL (J1940) IV ×3 (00:55→17:38)
[2018-03-08] MEDS: IPRATROPIUM 0.5MG/ALBUTEROL 2.5MG INH SOL UD 3ML (DUONEB)(J7620) NEB ×4 (02:00→20:00)
[2018-03-08] MEDS: LevoFLOXacin IV 250 MG in APPROPRIATE DILUENT 1 EA IV (03:53)
[2018-03-08] MEDS: HEPARIN SOD (PORCINE) 5000 UNITS/ML VIAL SC ×3 (05:29→21:48)
[2018-03-08] MEDS: LEVOTHYROXINE 88MCG TABLET (0.088 MG) PO (05:29)
[2018-03-08] MEDS: SLF 3 ML SYR IV ×3 (05:30→21:50)
[2018-03-08 05:34] LABS: HEMATOCRIT 32.5 % (42.0-52.0); HEMOGLOBIN 10.5 g/dl (13.5-17.5); MEAN CORPUSCULAR HEMOGLOBIN 30.3 pg (27.0-33.0); MEAN CORPUSCULAR HGB CONC 32.3 g/dl (32.0-36.5); MEAN CORPUSCULAR VOLUME 93.7 fl (80.0-96.0); PLATELET COUNT, AUTOMATED 181 10^3/uL (150-450); RED BLOOD COUNT 3.47 10^6/uL (4.30-6.10); RED CELL DISTRIBUTION WIDTH 15.9 % (11.5-14.5); WHITE BLOOD COUNT 11.7 10^3/uL (4.0-10.0)
[2018-03-08 05:36] LABS: ADD MANUAL DIFFER YES; DIFF SLIDE NUMBER 28; POSITIVE MORPH POS FLAG
[2018-03-08 05:56] LABS: ALBUMIN 2.6 GM/DL (3.2-5.2); ALBUMIN/GLOBULIN RATIO 0.63 (1.00-1.93); ALKALINE PHOSPHATASE 69 U/L (45-117); ALT/SGPT 152 U/L (12-78); ANION GAP 12 MEQ/L (8-16); AST/SGOT 157 U/L (7-37); BILIRUBIN,TOTAL 0.6 MG/DL (0.2-1.0); BLOOD UREA NITROGEN 110 MG/DL (7-18); CALCIUM LEVEL 8.7 MG/DL (8.8-10.2); CARBON DIOXIDE LEVEL 24 MEQ/L (21-32); CHLORIDE LEVEL 99 MEQ/L (98-107); GLOMERULAR FILTRATION RATE 20.3 (>42); GLUCOSE, FASTING 104 MG/DL (70-100); MAGNESIUM LEVEL 3.3 MG/DL (1.8-2.4); POTASSIUM SERUM 4.3 MEQ/L (3.5-5.1); SODIUM LEVEL 135 MEQ/L (136-145); TOTAL PROTEIN 6.7 GM/DL (6.4-8.2)
[2018-03-08 06:12] LABS: ATYPICAL LYMPH 1 % (0-5); LYMPHOCYTES 4 % (16-52); MONOCYTES 14 % (0-8); NEUTROPHILS 81 % (35-75)
[2018-03-08 06:13] LABS: ANISOCYTOSIS 1+; PLATELET ESTIMATE NORMAL (NORMAL)
[2018-03-08 06:14] LABS: POLYCHROMASIA 1+
[2018-03-08] MEDS: ADVAIR HFA 230/21MCG INHALER INH ×2 (08:08→20:48)
[2018-03-08] MEDS: ALLOPURINOL 100 MG TAB PO (09:37)
[2018-03-08] MEDS: HumaLOG INSULIN (NovoLOG) PER UNIT SC ×4 (09:37→21:00)
[2018-03-08] MEDS: AMIODARONE 200 MG TAB (PACERONE) PO ×2 (09:37→21:47)
[2018-03-08] MEDS: MULTIVITAMINS/MINERALS THERAP 1 TAB PO (09:37)
[2018-03-08] MEDS: SPIRONOLACTONE 25 MG TAB PO (09:37)
[2018-03-08] MEDS: DOCUSATE SODIUM 100 MG CAP PO ×2 (09:37→21:45)
[2018-03-08] MEDS: FERROUS SULFATE 325MG TAB PO (09:37)
[2018-03-08 12:20] LABS: BEDSIDE GLUCOSE 127 MG/DL (83-110)
[2018-03-08] MEDS: CLOPIDOGREL 75 MG TAB PO (15:27)
[2018-03-08 17:28] LABS: BEDSIDE GLUCOSE 153 MG/DL (83-110)
[2018-03-08 20:44] LABS: NT-PRO BNP 30808 PG/ML (<125)
[2018-03-08] MEDS: ATORVASTATIN 20 MG TAB PO (21:45)
[2018-03-08] MEDS: rOPINIRole 1MG TAB PO (21:46)
[2018-03-08] MEDS: metOLazone 5 MG TAB PO (21:46)
[2018-03-08] MEDS: POLYVINYL ALCOHOL OPHTH SOLN 15 ML(LIQUITEARS) OU (21:50)
[2018-03-09] MEDS: FUROSEMIDE 100 MG/10 ML VIAL (J1940) IV ×5 (00:21→23:52)
[2018-03-09] MEDS: IPRATROPIUM 0.5MG/ALBUTEROL 2.5MG INH SOL UD 3ML (DUONEB)(J7620) NEB ×4 (01:50→20:00)
[2018-03-09 05:04] LABS: HEMATOCRIT 30.9 % (42.0-52.0); HEMOGLOBIN 10.2 g/dl (13.5-17.5); MEAN CORPUSCULAR HEMOGLOBIN 30.9 pg (27.0-33.0); MEAN CORPUSCULAR VOLUME 93.6 fl (80.0-96.0); PLATELET COUNT, AUTOMATED 167 10^3/uL (150-450); RED CELL DISTRIBUTION WIDTH 16.1 % (11.5-14.5)
[2018-03-09 05:13] LABS: ADD MANUAL DIFFER YES; DIFF SLIDE NUMBER 19; POSITIVE MORPH POS FLAG
[2018-03-09 05:19] LABS: ALBUMIN 2.5 GM/DL (3.2-5.2); ALBUMIN/GLOBULIN RATIO 0.63 (1.00-1.93); ALKALINE PHOSPHATASE 71 U/L (45-117); ALT/SGPT 162 U/L (12-78); ANION GAP 11 MEQ/L (8-16); AST/SGOT 144 U/L (7-37); BILIRUBIN,TOTAL 0.6 MG/DL (0.2-1.0); BLOOD UREA NITROGEN 116 MG/DL (7-18); CALCIUM LEVEL 8.5 MG/DL (8.8-10.2); CARBON DIOXIDE LEVEL 24 MEQ/L (21-32); CHLORIDE LEVEL 102 MEQ/L (98-107); CREATININE FOR GFR 3.11 MG/DL (0.70-1.30); GLUCOSE, FASTING 105 MG/DL (70-100); MAGNESIUM LEVEL 3.2 MG/DL (1.8-2.4); SODIUM LEVEL 137 MEQ/L (136-145); TOTAL PROTEIN 6.5 GM/DL (6.4-8.2)
[2018-03-09 05:37] LABS: ANISOCYTOSIS 1+; BANDS 1 % (< 11); BASOPHILS 1 % (0-4); EOSINOPHILS 1 % (0-5); LYMPHOCYTES 9 % (16-52); MONOCYTES 6 % (0-8); NEUTROPHILS 82 % (35-75); PLATELET CLUMPS SMALL AMT; PLATELET ESTIMATE NORMAL (NORMAL)
[2018-03-09] MEDS: LEVOTHYROXINE 88MCG TABLET (0.088 MG) PO (06:08)
[2018-03-09] MEDS: HEPARIN SOD (PORCINE) 5000 UNITS/ML VIAL SC ×3 (06:10→20:56)
[2018-03-09] MEDS: SLF 3 ML SYR IV ×3 (06:15→20:57)
[2018-03-09] MEDS: ADVAIR HFA 230/21MCG INHALER INH ×2 (08:23→20:10)
[2018-03-09] MEDS: HumaLOG INSULIN (NovoLOG) PER UNIT SC ×4 (08:50→20:56)
[2018-03-09] MEDS: ALLOPURINOL 100 MG TAB PO (08:50)
[2018-03-09] MEDS: FERROUS SULFATE 325MG TAB PO (08:51)
[2018-03-09] MEDS: AMIODARONE 200 MG TAB (PACERONE) PO ×2 (08:51→20:55)
[2018-03-09] MEDS: DOCUSATE SODIUM 100 MG CAP PO ×2 (08:51→20:55)
[2018-03-09] MEDS: SPIRONOLACTONE 25 MG TAB PO (08:51)
[2018-03-09 12:03] LABS: BEDSIDE GLUCOSE 140 MG/DL (83-110)
[2018-03-09] MEDS: CLOPIDOGREL 75 MG TAB PO (15:35)
[2018-03-09 16:52] LABS: BEDSIDE GLUCOSE 132 MG/DL (83-110)
[2018-03-09] MEDS: ATORVASTATIN 20 MG TAB PO (20:55)
[2018-03-09] MEDS: rOPINIRole 1MG TAB PO (20:56)
[2018-03-09] MEDS: POLYVINYL ALCOHOL OPHTH SOLN 15 ML(LIQUITEARS) OU (20:56)
[2018-03-09 21:07] LABS: BEDSIDE GLUCOSE 129 MG/DL (83-110)
[2018-03-10] MEDS: IPRATROPIUM 0.5MG/ALBUTEROL 2.5MG INH SOL UD 3ML (DUONEB)(J7620) NEB ×4 (02:00→20:00)
[2018-03-10 04:14] LABS: APPEARANCE, URINE CLEAR (CLEAR); BACTERIA, URINE AUTO NEGATIVE (NEGATIVE); BILIRUBIN, URINE AUTO NEGATIVE (NEGATIVE); BLOOD, URINE BLOOD 3+ (NEGATIVE); COLOR, URINE YELLOW (YELLOW); GLUCOSE, URINE (UA) AUTO NEGATIVE (NEGATIVE); KETONE, URINE AUTO NEGATIVE (NEGATIVE); LEUKOCYTE ESTERASE, URINE AUTO NEGATIVE (NEGATIVE); NITRITE, URINE AUTO NEGATIVE (NEGATIVE); PROTEIN, URINE AUTO NEGATIVE (NEGATIVE); RBC, URINE AUTO 118 /HPF (0-3); SPECIFIC GRAVITY URINE AUTO 1.006 (1.002-1.035); SQUAMOUS EPITHELIAL CELL UR AU 0 /HPF (0-6); UROBILINOGEN, URINE AUTO 0.2 mg/dL (0.0-2.0); WBC, URINE AUTO 1 /HPF (0-3)
[2018-03-10 05:35] LABS: HEMATOCRIT 29.6 % (42.0-52.0); HEMOGLOBIN 9.7 g/dl (13.5-17.5); MEAN CORPUSCULAR HEMOGLOBIN 30.7 pg (27.0-33.0); MEAN CORPUSCULAR HGB CONC 32.8 g/dl (32.0-36.5); MEAN CORPUSCULAR VOLUME 93.7 fl (80.0-96.0); PLATELET COUNT, AUTOMATED 167 10^3/uL (150-450); RED BLOOD COUNT 3.16 10^6/uL (4.30-6.10); RED CELL DISTRIBUTION WIDTH 16.2 % (11.5-14.5); WHITE BLOOD COUNT 9.3 10^3/uL (4.0-10.0)
[2018-03-10 05:39] LABS: ADD MANUAL DIFFER YES; DIFF SLIDE NUMBER 8; POSITIVE MORPH POS FLAG
[2018-03-10 05:55] LABS: ALBUMIN 2.5 GM/DL (3.2-5.2); ALBUMIN/GLOBULIN RATIO 0.61 (1.00-1.93); ALKALINE PHOSPHATASE 70 U/L (45-117); ALT/SGPT 151 U/L (12-78); ANION GAP 10 MEQ/L (8-16); AST/SGOT 111 U/L (7-37); BILIRUBIN,TOTAL 0.7 MG/DL (0.2-1.0); BLOOD UREA NITROGEN 125 MG/DL (7-18); CALCIUM LEVEL 8.8 MG/DL (8.8-10.2); CARBON DIOXIDE LEVEL 25 MEQ/L (21-32); CHLORIDE LEVEL 101 MEQ/L (98-107); CREATININE FOR GFR 3.07 MG/DL (0.70-1.30); GLOMERULAR FILTRATION RATE 21.3 (>42); GLUCOSE, FASTING 91 MG/DL (70-100); MAGNESIUM LEVEL 3.2 MG/DL (1.8-2.4); POTASSIUM SERUM 3.8 MEQ/L (3.5-5.1); SODIUM LEVEL 136 MEQ/L (136-145); TOTAL PROTEIN 6.6 GM/DL (6.4-8.2)
[2018-03-10] MEDS: LevoFLOXacin 250 MG TABLET PO (05:57)
[2018-03-10] MEDS: LEVOTHYROXINE 88MCG TABLET (0.088 MG) PO (05:57)
[2018-03-10] MEDS: HEPARIN SOD (PORCINE) 5000 UNITS/ML VIAL SC ×3 (05:57→21:08)
[2018-03-10] MEDS: FUROSEMIDE 100 MG/10 ML VIAL (J1940) IV ×3 (05:58→18:16)
[2018-03-10] MEDS: SLF 3 ML SYR IV ×3 (06:00→21:08)
[2018-03-10 06:30] LABS: ANISOCYTOSIS 1+; ATYPICAL LYMPH 2 % (0-5); EOSINOPHILS 3 % (0-5); LYMPHOCYTES 11 % (16-52); MONOCYTES 9 % (0-8); NEUTROPHILS 75 % (35-75); PLATELET ESTIMATE NORMAL (NORMAL)
[2018-03-10] MEDS: HumaLOG INSULIN (NovoLOG) PER UNIT SC ×4 (07:30→21:00)
[2018-03-10] MEDS: ADVAIR HFA 230/21MCG INHALER INH ×2 (07:44→20:13)
[2018-03-10] MEDS: FERROUS SULFATE 325MG TAB PO (09:43)
[2018-03-10] MEDS: SPIRONOLACTONE 25 MG TAB PO ×2 (09:43→18:15)
[2018-03-10] MEDS: AMIODARONE 200 MG TAB (PACERONE) PO ×2 (09:43→21:06)
[2018-03-10] MEDS: DOCUSATE SODIUM 100 MG CAP PO ×2 (09:43→21:07)
[2018-03-10] MEDS: ALLOPURINOL 100 MG TAB PO (09:43)
[2018-03-10 11:55] LABS: BEDSIDE GLUCOSE 116 MG/DL (83-110)
[2018-03-10] MEDS: CLOPIDOGREL 75 MG TAB PO (13:12)
[2018-03-10] MEDS: POTASSIUM CHLORIDE 10 MEQ SR TABLET PO (13:41)
[2018-03-10 17:36] LABS: BEDSIDE GLUCOSE 132 MG/DL (83-110)
[2018-03-10 20:44] LABS: BEDSIDE GLUCOSE 112 MG/DL (83-110)
[2018-03-10] MEDS: ATORVASTATIN 20 MG TAB PO (21:07)
[2018-03-10] MEDS: rOPINIRole 1MG TAB PO (21:07)
[2018-03-10] MEDS: POLYVINYL ALCOHOL OPHTH SOLN 15 ML(LIQUITEARS) OU (21:08)
[2018-03-11] MEDS: FUROSEMIDE 100 MG/10 ML VIAL (J1940) IV ×4 (00:08→17:14)
[2018-03-11] MEDS: IPRATROPIUM 0.5MG/ALBUTEROL 2.5MG INH SOL UD 3ML (DUONEB)(J7620) NEB ×4 (02:37→20:00)
[2018-03-11 05:24] LABS: BASO % 0.2 % (0.0-1.0); EOS # 0.1 10^3/uL (0.0-0.50); EOS % 1.6 % (0.0-3.0); HEMATOCRIT 30.4 % (42.0-52.0); HEMOGLOBIN 9.9 g/dl (13.5-17.5); IMMATURE GRANULOCYTE % 0.8 % (0-3.0); LYMPH # 1.1 10^3/uL (1.5-4.5); LYMPH % 13.2 % (24.0-44.0); MEAN CORPUSCULAR HEMOGLOBIN 30.5 pg (27.0-33.0); MEAN CORPUSCULAR HGB CONC 32.6 g/dl (32.0-36.5); MEAN CORPUSCULAR VOLUME 93.5 fl (80.0-96.0); MONO # 0.7 10^3/uL (0.0-0.8); MONO % 8.5 % (0.0-5.0); NEUTROPHILS # 6.5 10^3/uL (1.8-7.7); NEUTROPHILS % 75.7 % (36.0-66.0); PLATELET COUNT, AUTOMATED 176 10^3/uL (150-450); RED BLOOD COUNT 3.25 10^6/uL (4.30-6.10); RED CELL DISTRIBUTION WIDTH 16.4 % (11.5-14.5); WHITE BLOOD COUNT 8.6 10^3/uL (4.0-10.0)
[2018-03-11 05:38] LABS: ALBUMIN 2.6 GM/DL (3.2-5.2); ALKALINE PHOSPHATASE 67 U/L (45-117); ALT/SGPT 164 U/L (12-78); ANION GAP 10 MEQ/L (8-16); AST/SGOT 108 U/L (7-37); BILIRUBIN,TOTAL 0.8 MG/DL (0.2-1.0); BLOOD UREA NITROGEN 133 MG/DL (7-18); CALCIUM LEVEL 8.9 MG/DL (8.8-10.2); CARBON DIOXIDE LEVEL 26 MEQ/L (21-32); CHLORIDE LEVEL 102 MEQ/L (98-107); CREATININE FOR GFR 3.13 MG/DL (0.70-1.30); GLOMERULAR FILTRATION RATE 20.8 (>42); GLUCOSE, FASTING 89 MG/DL (70-100); POTASSIUM SERUM 3.9 MEQ/L (3.5-5.1); SODIUM LEVEL 138 MEQ/L (136-145); TOTAL PROTEIN 6.9 GM/DL (6.4-8.2)
[2018-03-11] MEDS: LEVOTHYROXINE 88MCG TABLET (0.088 MG) PO (05:40)
[2018-03-11] MEDS: SLF 3 ML SYR IV ×3 (05:41→19:55)
[2018-03-11] MEDS: HEPARIN SOD (PORCINE) 5000 UNITS/ML VIAL SC (05:41)
[2018-03-11] MEDS: ADVAIR HFA 230/21MCG INHALER INH ×2 (07:30→20:52)
[2018-03-11] MEDS: HumaLOG INSULIN (NovoLOG) PER UNIT SC (07:30)
[2018-03-11] MEDS: DOCUSATE SODIUM 100 MG CAP PO ×2 (09:42→19:51)
[2018-03-11] MEDS: SPIRONOLACTONE 25 MG TAB PO ×2 (09:42→17:14)
[2018-03-11] MEDS: FERROUS SULFATE 325MG TAB PO (09:42)
[2018-03-11] MEDS: AMIODARONE 200 MG TAB (PACERONE) PO ×2 (09:42→19:54)
[2018-03-11] MEDS: POTASSIUM CHLORIDE 10 MEQ SR TABLET PO (09:43)
[2018-03-11] MEDS: ALLOPURINOL 100 MG TAB PO (09:43)
[2018-03-11] MEDS: CLOPIDOGREL 75 MG TAB PO (14:28)
[2018-03-11] MEDS: ATORVASTATIN 20 MG TAB PO (19:52)
[2018-03-11] MEDS: POLYVINYL ALCOHOL OPHTH SOLN 15 ML(LIQUITEARS) OU (19:54)
[2018-03-11] MEDS: rOPINIRole 1MG TAB PO (19:54)
[2018-03-12] MEDS: FUROSEMIDE 100 MG/10 ML VIAL (J1940) IV ×4 (00:03→18:01)
[2018-03-12] MEDS: IPRATROPIUM 0.5MG/ALBUTEROL 2.5MG INH SOL UD 3ML (DUONEB)(J7620) NEB ×4 (02:47→20:00)
[2018-03-12 05:22] LABS: BASO % 0.2 % (0.0-1.0); EOS # 0.1 10^3/uL (0.0-0.50); EOS % 1.3 % (0.0-3.0); HEMATOCRIT 30.9 % (42.0-52.0); HEMOGLOBIN 10.1 g/dl (13.5-17.5); IMMATURE GRANULOCYTE % 0.9 % (0-3.0); LYMPH # 0.9 10^3/uL (1.5-4.5); LYMPH % 10.3 % (24.0-44.0); MEAN CORPUSCULAR HEMOGLOBIN 30.6 pg (27.0-33.0); MEAN CORPUSCULAR HGB CONC 32.7 g/dl (32.0-36.5); MEAN CORPUSCULAR VOLUME 93.6 fl (80.0-96.0); MONO # 0.7 10^3/uL (0.0-0.8); MONO % 8.1 % (0.0-5.0); NEUTROPHILS # 7.1 10^3/uL (1.8-7.7); NEUTROPHILS % 79.2 % (36.0-66.0); PLATELET COUNT, AUTOMATED 193 10^3/uL (150-450); RED CELL DISTRIBUTION WIDTH 16.6 % (11.5-14.5); WHITE BLOOD COUNT 8.9 10^3/uL (4.0-10.0)
[2018-03-12] MEDS: LEVOTHYROXINE 88MCG TABLET (0.088 MG) PO (05:41)
[2018-03-12] MEDS: SLF 3 ML SYR IV ×3 (05:42→20:23)
[2018-03-12 05:43] LABS: ALBUMIN 2.7 GM/DL (3.2-5.2); ALKALINE PHOSPHATASE 69 U/L (45-117); ALT/SGPT 177 U/L (12-78); ANION GAP 8 MEQ/L (8-16); AST/SGOT 109 U/L (7-37); BILIRUBIN,TOTAL 0.6 MG/DL (0.2-1.0); BLOOD UREA NITROGEN 142 MG/DL (7-18); CALCIUM LEVEL 8.9 MG/DL (8.8-10.2); CARBON DIOXIDE LEVEL 27 MEQ/L (21-32); CHLORIDE LEVEL 103 MEQ/L (98-107); GLOMERULAR FILTRATION RATE 20.3 (>42); GLUCOSE, FASTING 107 MG/DL (70-100); MAGNESIUM LEVEL 3.1 MG/DL (1.8-2.4); POTASSIUM SERUM 4.3 MEQ/L (3.5-5.1); SODIUM LEVEL 138 MEQ/L (136-145); TOTAL PROTEIN 7.2 GM/DL (6.4-8.2)
[2018-03-12] MEDS: ADVAIR HFA 230/21MCG INHALER INH ×2 (07:30→20:14)
[2018-03-12] MEDS: DOCUSATE SODIUM 100 MG CAP PO ×2 (08:51→20:22)
[2018-03-12] MEDS: AMIODARONE 200 MG TAB (PACERONE) PO ×2 (08:51→20:22)
[2018-03-12] MEDS: FERROUS SULFATE 325MG TAB PO (08:51)
[2018-03-12] MEDS: ALLOPURINOL 100 MG TAB PO (08:51)
[2018-03-12] MEDS: SPIRONOLACTONE 25 MG TAB PO ×2 (08:51→18:01)
[2018-03-12 12:00] LABS: BEDSIDE GLUCOSE 142 MG/DL (83-110)
[2018-03-12 12:00] LABS: BEDSIDE GLUCOSE 132 MG/DL (83-110)
[2018-03-12] MEDS: CLOPIDOGREL 75 MG TAB PO (15:01)
[2018-03-12] MEDS: rOPINIRole 1MG TAB PO (20:22)
[2018-03-12] MEDS: POLYVINYL ALCOHOL OPHTH SOLN 15 ML(LIQUITEARS) OU (20:22)
[2018-03-12] MEDS: ATORVASTATIN 20 MG TAB PO (20:22)
[2018-03-13] MEDS: IPRATROPIUM 0.5MG/ALBUTEROL 2.5MG INH SOL UD 3ML (DUONEB)(J7620) NEB ×4 (02:08→20:00)
[2018-03-13] MEDS: FUROSEMIDE 100 MG/10 ML VIAL (J1940) IV ×2 (02:47→10:59)
[2018-03-13] MEDS: LEVOTHYROXINE 88MCG TABLET (0.088 MG) PO (05:40)
[2018-03-13] MEDS: SLF 3 ML SYR IV ×3 (05:40→20:39)
[2018-03-13 05:44] LABS: BASO % 0.2 % (0.0-1.0); EOS # 0.1 10^3/uL (0.0-0.50); EOS % 1.5 % (0.0-3.0); HEMATOCRIT 30.3 % (42.0-52.0); HEMOGLOBIN 9.9 g/dl (13.5-17.5); IMMATURE GRANULOCYTE % 1.3 % (0-3.0); LYMPH % 10.7 % (24.0-44.0); MEAN CORPUSCULAR HEMOGLOBIN 30.6 pg (27.0-33.0); MEAN CORPUSCULAR HGB CONC 32.7 g/dl (32.0-36.5); MEAN CORPUSCULAR VOLUME 93.5 fl (80.0-96.0); MONO # 0.8 10^3/uL (0.0-0.8); MONO % 8.6 % (0.0-5.0); NEUTROPHILS # 7.1 10^3/uL (1.8-7.7); NEUTROPHILS % 77.7 % (36.0-66.0); PLATELET COUNT, AUTOMATED 204 10^3/uL (150-450); RED BLOOD COUNT 3.24 10^6/uL (4.30-6.10); RED CELL DISTRIBUTION WIDTH 16.6 % (11.5-14.5); WHITE BLOOD COUNT 9.2 10^3/uL (4.0-10.0)
[2018-03-13 06:13] LABS: ALBUMIN 2.8 GM/DL (3.2-5.2); ALBUMIN/GLOBULIN RATIO 0.64 (1.00-1.93); ALKALINE PHOSPHATASE 69 U/L (45-117); ALT/SGPT 181 U/L (12-78); ANION GAP 11 MEQ/L (8-16); AST/SGOT 100 U/L (7-37); BILIRUBIN,TOTAL 0.9 MG/DL (0.2-1.0); BLOOD UREA NITROGEN 145 MG/DL (7-18); CALCIUM LEVEL 8.9 MG/DL (8.8-10.2); CARBON DIOXIDE LEVEL 27 MEQ/L (21-32); CHLORIDE LEVEL 100 MEQ/L (98-107); GLOMERULAR FILTRATION RATE 19.6 (>42); GLUCOSE, FASTING 87 MG/DL (70-100); MAGNESIUM LEVEL 3.2 MG/DL (1.8-2.4); POTASSIUM SERUM 4.2 MEQ/L (3.5-5.1); SODIUM LEVEL 138 MEQ/L (136-145); TOTAL PROTEIN 7.2 GM/DL (6.4-8.2)
[2018-03-13] MEDS: ADVAIR HFA 230/21MCG INHALER INH ×2 (07:21→21:26)
[2018-03-13] MEDS: DOCUSATE SODIUM 100 MG CAP PO ×2 (09:10→20:38)
[2018-03-13] MEDS: FERROUS SULFATE 325MG TAB PO (09:10)
[2018-03-13] MEDS: SPIRONOLACTONE 25 MG TAB PO ×2 (09:10→17:00)
[2018-03-13] MEDS: AMIODARONE 200 MG TAB (PACERONE) PO ×2 (09:10→20:39)
[2018-03-13] MEDS: ALLOPURINOL 100 MG TAB PO (09:10)
[2018-03-13] MEDS ORDERED: CALCIUM CARBONATE 500 MG CHEW U/D PO (11:00)
[2018-03-13] MEDS: CLOPIDOGREL 75 MG TAB PO (14:00)
[2018-03-13] MEDS: TORSEMIDE (DEMADEX) 50 MG PER 1/2 TAB PO (17:00)
[2018-03-13] MEDS: rOPINIRole 1MG TAB PO (20:38)
[2018-03-13] MEDS: POLYVINYL ALCOHOL OPHTH SOLN 15 ML(LIQUITEARS) OU (20:39)
[2018-03-13] MEDS: ATORVASTATIN 20 MG TAB PO (20:39)
[2018-03-14] MEDS: IPRATROPIUM 0.5MG/ALBUTEROL 2.5MG INH SOL UD 3ML (DUONEB)(J7620) NEB ×4 (01:43→20:00)
[2018-03-14 05:54] LABS: BASO % 0.2 % (0.0-1.0); EOS # 0.2 10^3/uL (0.0-0.50); HEMATOCRIT 32.8 % (42.0-52.0); HEMOGLOBIN 10.6 g/dl (13.5-17.5); IMMATURE GRANULOCYTE % 0.9 % (0-3.0); LYMPH # 0.9 10^3/uL (1.5-4.5); LYMPH % 9.2 % (24.0-44.0); MEAN CORPUSCULAR HEMOGLOBIN 30.5 pg (27.0-33.0); MEAN CORPUSCULAR HGB CONC 32.3 g/dl (32.0-36.5); MEAN CORPUSCULAR VOLUME 94.3 fl (80.0-96.0); MONO # 0.8 10^3/uL (0.0-0.8); MONO % 7.8 % (0.0-5.0); NEUTROPHILS # 7.6 10^3/uL (1.8-7.7); NEUTROPHILS % 79.9 % (36.0-66.0); PLATELET COUNT, AUTOMATED 220 10^3/uL (150-450); RED BLOOD COUNT 3.48 10^6/uL (4.30-6.10); RED CELL DISTRIBUTION WIDTH 16.7 % (11.5-14.5); WHITE BLOOD COUNT 9.6 10^3/uL (4.0-10.0)
[2018-03-14] MEDS: SLF 3 ML SYR IV ×3 (06:00→22:00)
[2018-03-14] MEDS: LEVOTHYROXINE 88MCG TABLET (0.088 MG) PO (06:10)
[2018-03-14 06:13] LABS: ALBUMIN 2.8 GM/DL (3.2-5.2); ALBUMIN/GLOBULIN RATIO 0.61 (1.00-1.93); ALKALINE PHOSPHATASE 67 U/L (45-117); ALT/SGPT 199 U/L (12-78); ANION GAP 8 MEQ/L (8-16); AST/SGOT 108 U/L (7-37); BILIRUBIN,TOTAL 0.8 MG/DL (0.2-1.0); BLOOD UREA NITROGEN 132 MG/DL (7-18); CALCIUM LEVEL 8.9 MG/DL (8.8-10.2); CARBON DIOXIDE LEVEL 29 MEQ/L (21-32); CHLORIDE LEVEL 101 MEQ/L (98-107); CREATININE FOR GFR 3.15 MG/DL (0.70-1.30); GLOMERULAR FILTRATION RATE 20.7 (>42); GLUCOSE, FASTING 86 MG/DL (70-100); MAGNESIUM LEVEL 3.1 MG/DL (1.8-2.4); POTASSIUM SERUM 4.1 MEQ/L (3.5-5.1); SODIUM LEVEL 138 MEQ/L (136-145); TOTAL PROTEIN 7.4 GM/DL (6.4-8.2)
[2018-03-14] MEDS: ADVAIR HFA 230/21MCG INHALER INH ×2 (08:21→21:01)
[2018-03-14] MEDS: AMIODARONE 200 MG TAB (PACERONE) PO ×2 (08:31→21:09)
[2018-03-14] MEDS: FERROUS SULFATE 325MG TAB PO (08:31)
[2018-03-14] MEDS: SPIRONOLACTONE 25 MG TAB PO ×2 (08:32→17:23)
[2018-03-14] MEDS: ALLOPURINOL 100 MG TAB PO (08:32)
[2018-03-14] MEDS: TORSEMIDE (DEMADEX) 50 MG PER 1/2 TAB PO ×2 (08:32→17:23)
[2018-03-14] MEDS: DOCUSATE SODIUM 100 MG CAP PO ×2 (08:32→21:09)
[2018-03-14] MEDS: CLOPIDOGREL 75 MG TAB PO (13:58)
[2018-03-14] MEDS: ATORVASTATIN 20 MG TAB PO (21:09)
[2018-03-14] MEDS: rOPINIRole 1MG TAB PO (21:09)
[2018-03-14] MEDS: POLYVINYL ALCOHOL OPHTH SOLN 15 ML(LIQUITEARS) OU (21:10)
[2018-03-15] MEDS: IPRATROPIUM 0.5MG/ALBUTEROL 2.5MG INH SOL UD 3ML (DUONEB)(J7620) NEB ×4 (02:13→20:00)
[2018-03-15 05:49] LABS: BASO % 0.2 % (0.0-1.0); EOS # 0.1 10^3/uL (0.0-0.50); EOS % 1.7 % (0.0-3.0); HEMATOCRIT 31.8 % (42.0-52.0); HEMOGLOBIN 10.3 g/dl (13.5-17.5); IMMATURE GRANULOCYTE % 1.1 % (0-3.0); LYMPH % 11.5 % (24.0-44.0); MEAN CORPUSCULAR HEMOGLOBIN 30.6 pg (27.0-33.0); MEAN CORPUSCULAR HGB CONC 32.4 g/dl (32.0-36.5); MEAN CORPUSCULAR VOLUME 94.4 fl (80.0-96.0); MONO # 0.8 10^3/uL (0.0-0.8); MONO % 9.6 % (0.0-5.0); NEUTROPHILS # 6.4 10^3/uL (1.8-7.7); NEUTROPHILS % 75.9 % (36.0-66.0); PLATELET COUNT, AUTOMATED 216 10^3/uL (150-450); RED BLOOD COUNT 3.37 10^6/uL (4.30-6.10); RED CELL DISTRIBUTION WIDTH 16.7 % (11.5-14.5); WHITE BLOOD COUNT 8.4 10^3/uL (4.0-10.0)
[2018-03-15] MEDS: SLF 3 ML SYR IV ×3 (06:00→21:37)
[2018-03-15 06:16] LABS: ALBUMIN 2.7 GM/DL (3.2-5.2); ALBUMIN/GLOBULIN RATIO 0.61 (1.00-1.93); ALKALINE PHOSPHATASE 64 U/L (45-117); ALT/SGPT 180 U/L (12-78); ANION GAP 10 MEQ/L (8-16); AST/SGOT 95 U/L (7-37); BILIRUBIN,TOTAL 0.8 MG/DL (0.2-1.0); BLOOD UREA NITROGEN 136 MG/DL (7-18); CALCIUM LEVEL 8.7 MG/DL (8.8-10.2); CARBON DIOXIDE LEVEL 28 MEQ/L (21-32); CHLORIDE LEVEL 102 MEQ/L (98-107); CREATININE FOR GFR 3.06 MG/DL (0.70-1.30); GLOMERULAR FILTRATION RATE 21.4 (>42); GLUCOSE, FASTING 85 MG/DL (70-100); MAGNESIUM LEVEL 3.1 MG/DL (1.8-2.4); POTASSIUM SERUM 3.9 MEQ/L (3.5-5.1); SODIUM LEVEL 140 MEQ/L (136-145); TOTAL PROTEIN 7.1 GM/DL (6.4-8.2)
[2018-03-15] MEDS: LEVOTHYROXINE 88MCG TABLET (0.088 MG) PO (06:38)
[2018-03-15] MEDS: ADVAIR HFA 230/21MCG INHALER INH ×2 (07:27→23:08)
[2018-03-15] MEDS: AMIODARONE 200 MG TAB (PACERONE) PO ×2 (08:32→20:24)
[2018-03-15] MEDS: DOCUSATE SODIUM 100 MG CAP PO ×2 (08:32→20:25)
[2018-03-15] MEDS: FERROUS SULFATE 325MG TAB PO (08:32)
[2018-03-15] MEDS: ALLOPURINOL 100 MG TAB PO (08:33)
[2018-03-15] MEDS: TORSEMIDE (DEMADEX) 50 MG PER 1/2 TAB PO ×2 (08:33→17:36)
[2018-03-15] MEDS: SPIRONOLACTONE 25 MG TAB PO ×2 (08:33→17:36)
[2018-03-15] MEDS: CLOPIDOGREL 75 MG TAB PO (14:05)
[2018-03-15] MEDS: rOPINIRole 1MG TAB PO (20:24)
[2018-03-15] MEDS: ATORVASTATIN 20 MG TAB PO (20:24)
[2018-03-15] MEDS: POTASSIUM CHLORIDE 10 MEQ SR TABLET PO (20:25)
[2018-03-15 20:52] LABS: BEDSIDE GLUCOSE 129 MG/DL (83-110)
[2018-03-15] MEDS: POLYVINYL ALCOHOL OPHTH SOLN 15 ML(LIQUITEARS) OU (21:37)
[2018-03-16] MEDS: IPRATROPIUM 0.5MG/ALBUTEROL 2.5MG INH SOL UD 3ML (DUONEB)(J7620) NEB ×2 (01:09→11:30)
[2018-03-16 06:01] LABS: BASO % 0.2 % (0.0-1.0); EOS # 0.2 10^3/uL (0.0-0.50); EOS % 2.1 % (0.0-3.0); HEMATOCRIT 33.2 % (42.0-52.0); HEMOGLOBIN 10.5 g/dl (13.5-17.5); LYMPH # 0.9 10^3/uL (1.5-4.5); LYMPH % 10.5 % (24.0-44.0); MEAN CORPUSCULAR HEMOGLOBIN 30.2 pg (27.0-33.0); MEAN CORPUSCULAR HGB CONC 31.6 g/dl (32.0-36.5); MEAN CORPUSCULAR VOLUME 95.4 fl (80.0-96.0); MONO # 0.7 10^3/uL (0.0-0.8); NEUTROPHILS # 6.2 10^3/uL (1.8-7.7); NEUTROPHILS % 77.2 % (36.0-66.0); PLATELET COUNT, AUTOMATED 219 10^3/uL (150-450); RED BLOOD COUNT 3.48 10^6/uL (4.30-6.10); RED CELL DISTRIBUTION WIDTH 16.9 % (11.5-14.5); WHITE BLOOD COUNT 8.1 10^3/uL (4.0-10.0)
[2018-03-16 06:29] LABS: ALBUMIN 2.8 GM/DL (3.2-5.2); ALBUMIN/GLOBULIN RATIO 0.61 (1.00-1.93); ALKALINE PHOSPHATASE 63 U/L (45-117); ALT/SGPT 197 U/L (12-78); ANION GAP 9 MEQ/L (8-16); AST/SGOT 102 U/L (7-37); BILIRUBIN,TOTAL 0.7 MG/DL (0.2-1.0); BLOOD UREA NITROGEN 132 MG/DL (7-18); CALCIUM LEVEL 8.9 MG/DL (8.8-10.2); CARBON DIOXIDE LEVEL 27 MEQ/L (21-32); CHLORIDE LEVEL 103 MEQ/L (98-107); CREATININE FOR GFR 2.97 MG/DL (0.70-1.30); GLOMERULAR FILTRATION RATE 22.1 (>42); GLUCOSE, FASTING 89 MG/DL (70-100); MAGNESIUM LEVEL 2.9 MG/DL (1.8-2.4); POTASSIUM SERUM 4.2 MEQ/L (3.5-5.1); SODIUM LEVEL 139 MEQ/L (136-145); TOTAL PROTEIN 7.4 GM/DL (6.4-8.2)
[2018-03-16] MEDS: SLF 3 ML SYR IV (06:58)
[2018-03-16] MEDS: LEVOTHYROXINE 88MCG TABLET (0.088 MG) PO (06:58)
[2018-03-16] MEDS: DOCUSATE SODIUM 100 MG CAP PO (09:07)
[2018-03-16] MEDS: AMIODARONE 200 MG TAB (PACERONE) PO (09:07)
[2018-03-16] MEDS: TORSEMIDE (DEMADEX) 50 MG PER 1/2 TAB PO (09:07)
[2018-03-16] MEDS: FERROUS SULFATE 325MG TAB PO (09:08)
[2018-03-16] MEDS: SPIRONOLACTONE 25 MG TAB PO (09:08)
[2018-03-16] MEDS: ALLOPURINOL 100 MG TAB PO (09:08)
[2018-03-16] MEDS: POTASSIUM CHLORIDE 10 MEQ SR TABLET PO (09:08)
[2018-03-16] MEDS: ADVAIR HFA 230/21MCG INHALER INH (11:31)
[2018-03-16 12:14] LABS: BEDSIDE GLUCOSE 106 MG/DL (83-110)
== END 2018-03-16 12:23 | disposition home or self-care (01) | DRG 291 ==
LOC: M ED 21:08 → M MSPAV 03-15 18:51 → M ED INP 03-06 00:10 → M PCU 03-06 01:37
DX: I13.0 Hypertensive heart and chronic kidney disease with heart failure and stage 1 through stage 4 chronic kidney disease, or unspecified chronic kidney disease (principal); J96.01 Acute respiratory failure with hypoxia; I50.31 Acute diastolic (congestive) heart failure; N18.4 Chronic kidney disease, stage 4 (severe); E87.1 Hypo-osmolality and hyponatremia; I47.2 Ventricular tachycardia; N17.9 Acute kidney failure, unspecified; Z95.0 Presence of cardiac pacemaker; E83.41 Hypermagnesemia; Z79.899 Other long term (current) drug therapy; E03.9 Hypothyroidism, unspecified; E11.9 Type 2 diabetes mellitus without complications; Z88.6 Allergy status to analgesic agent; Z88.8 Allergy status to other drugs, medicaments and biological substances; D72.829 Elevated white blood cell count, unspecified; G47.33 Obstructive sleep apnea (adult) (pediatric); M10.9 Gout, unspecified; H40.9 Unspecified glaucoma; G25.81 Restless legs syndrome; D64.9 Anemia, unspecified

== ENCOUNTER → 2018-05-31 | Outpatient (CLI) | payer MEDICARE, OTHER | LOC: M RAD 11:56 | DX: R09.02 Hypoxemia (principal); I51.7 Cardiomegaly; Z95.0 Presence of cardiac pacemaker | CPT/HCPCS: 71046 ==

== ENCOUNTER → 2018-06-03 | Outpatient (CLI) | payer MEDICARE, OTHER ==
[2018-06-03 09:04] LABS: ALBUMIN 3.4 GM/DL (3.2-5.2); ANION GAP 13 MEQ/L (8-16); BLOOD UREA NITROGEN 107 MG/DL (7-18); CALCIUM LEVEL 9.1 MG/DL (8.8-10.2); CARBON DIOXIDE LEVEL 28 MEQ/L (21-32); CHLORIDE LEVEL 97 MEQ/L (98-107); CREATININE FOR GFR 2.94 MG/DL (0.70-1.30); GLOMERULAR FILTRATION RATE 22.4 (>42); GLUCOSE, FASTING 135 MG/DL (70-100); PHOSPHORUS LEVEL 3.5 MG/DL (2.5-4.9); POTASSIUM SERUM 3.7 MEQ/L (3.5-5.1); SODIUM LEVEL 138 MEQ/L (136-145)
== END ==
LOC: M LAB 07:38
DX: R09.02 Hypoxemia (principal); I50.32 Chronic diastolic (congestive) heart failure
CPT/HCPCS: 80069

== ENCOUNTER → 2018-06-05 | Outpatient (CLI) | payer MEDICARE, OTHER ==
[2018-06-05 08:49] LABS: ALBUMIN 3.4 GM/DL (3.2-5.2); ANION GAP 12 MEQ/L (8-16); BLOOD UREA NITROGEN 123 MG/DL (7-18); CALCIUM LEVEL 9.1 MG/DL (8.8-10.2); CARBON DIOXIDE LEVEL 29 MEQ/L (21-32); CHLORIDE LEVEL 91 MEQ/L (98-107); CREATININE FOR GFR 3.96 MG/DL (0.70-1.30); GLOMERULAR FILTRATION RATE 15.9 (>42); GLUCOSE, FASTING 130 MG/DL (70-100); PHOSPHORUS LEVEL 4.7 MG/DL (2.5-4.9); POTASSIUM SERUM 3.8 MEQ/L (3.5-5.1); SODIUM LEVEL 132 MEQ/L (136-145)
== END ==
LOC: M LAB 07:56
DX: I25.10 Atherosclerotic heart disease of native coronary artery without angina pectoris (principal)
CPT/HCPCS: 80069

== ENCOUNTER 2018-06-07 16:02 | Inpatient (IN) | payer MEDICARE, OTHER ==
[2018-06-07 17:29] LABS: BASO % 0.1 % (0.0-1.0); EOS % 0.1 % (0.0-3.0); HEMATOCRIT 42.4 % (42.0-52.0); HEMOGLOBIN 14.4 g/dl (13.5-17.5); IMMATURE GRANULOCYTE % 0.7 % (0-3.0); LYMPH % 7.7 % (24.0-44.0); MEAN CORPUSCULAR HEMOGLOBIN 30.2 pg (27.0-33.0); MEAN CORPUSCULAR VOLUME 88.9 fl (80.0-96.0); MONO # 1.5 10^3/uL (0.0-0.8); MONO % 11.6 % (0.0-5.0); NEUTROPHILS # 10.5 10^3/uL (1.8-7.7); NEUTROPHILS % 79.8 % (36.0-66.0); PLATELET COUNT, AUTOMATED 191 10^3/uL (150-450); RED BLOOD COUNT 4.77 10^6/uL (4.30-6.10); RED CELL DISTRIBUTION WIDTH 17.1 % (11.5-14.5); WHITE BLOOD COUNT 13.2 10^3/uL (4.0-10.0)
[2018-06-07 17:46] LABS: LACTIC ACID SEPSIS PROTOCOL 1.5 MMOL/L (0.4-2.0)
[2018-06-07 17:47] LABS: ALBUMIN 3.2 GM/DL (3.2-5.2); ALBUMIN/GLOBULIN RATIO 0.76 (1.00-1.93); ALKALINE PHOSPHATASE 149 U/L (45-117); ANION GAP 15 MEQ/L (8-16); AST/SGOT 915 U/L (7-37); BILIRUBIN,TOTAL 2.7 MG/DL (0.2-1.0); BLOOD UREA NITROGEN 135 MG/DL (7-18); CALCIUM LEVEL 8.7 MG/DL (8.8-10.2); CARBON DIOXIDE LEVEL 25 MEQ/L (21-32); CHLORIDE LEVEL 88 MEQ/L (98-107); CPK CREATINE PHOSPHOKINASE 156 U/L (39-308); CREATININE FOR GFR 5.21 MG/DL (0.70-1.30); GLOMERULAR FILTRATION RATE 11.6 (>42); GLUCOSE, FASTING 126 MG/DL (70-100); POTASSIUM SERUM 3.8 MEQ/L (3.5-5.1); SODIUM LEVEL 128 MEQ/L (136-145); THYROXINE (T4) 23.8 UG/DL (4.5-12.0); TOTAL PROTEIN 7.4 GM/DL (6.4-8.2); TROPONIN I 0.18 NG/ML (< 0.10)
[2018-06-07 17:48] LABS: CK-MB VALUE MASS 4.6 NG/ML (<3.6); MB/CK RELATIVE INDEX 2.94 (< OR =4)
[2018-06-07 17:49] LABS: INR 1.15; PROTHROMBIN TIME 14.9 SECONDS (12.1-14.4)
[2018-06-07 17:53] LABS: ALT/SGPT 1379 U/L (12-78); THYROID STIMULATING HORMONE 0.372 uIU/ML (0.358-3.740)
[2018-06-07] MEDS ORDERED: ISOVUE-370 76% 100ML VIAL (Q9967) As Ordered (20:13)
[2018-06-07] MEDS ORDERED: NITROGLYCERIN 0.4 MG SUBL TABLET SL (20:30)
[2018-06-07 20:44] LABS: C REACTIVE PROTEIN QUANTITATIV 1.08 MG/DL (0.00-0.30)
[2018-06-07 20:57] LABS: ACETAMINOPHEN LEVEL < 2.0 UG/ML (10.0-30.0)
[2018-06-07] MEDS: POLYVINYL ALCOHOL OPHTH SOLN 15 ML(LIQUITEARS) OU (21:00)
[2018-06-07 21:11] LABS: ERYTHROCYTE SEDIMENTATION RATE 32 mm/hr (0-20)
[2018-06-07] MEDS: HEPARIN SOD (PORCINE) 5000 UNITS/ML VIAL SC (23:33)
[2018-06-07] MEDS: ATORVASTATIN 20 MG TAB PO (23:34)
[2018-06-07] MEDS: SENOKOT S TAB PO (23:34)
[2018-06-07] MEDS: rOPINIRole 1MG TAB PO (23:34)
[2018-06-07] MEDS: NS 1,000 ML IV (23:34)
[2018-06-07] MEDS: GABAPENTIN 100 MG CAP PO (23:34)
[2018-06-08] MEDS: HEPARIN SOD (PORCINE) 5000 UNITS/ML VIAL SC ×3 (05:48→21:05)
[2018-06-08] MEDS: LEVOTHYROXINE 88MCG TABLET (0.088 MG) PO (05:48)
[2018-06-08 06:07] LABS: HEMATOCRIT 38.5 % (42.0-52.0); HEMOGLOBIN 13.1 g/dl (13.5-17.5); MEAN CORPUSCULAR HEMOGLOBIN 30.1 pg (27.0-33.0); MEAN CORPUSCULAR VOLUME 88.5 fl (80.0-96.0); PLATELET COUNT, AUTOMATED 156 10^3/uL (150-450); RED BLOOD COUNT 4.35 10^6/uL (4.30-6.10); RED CELL DISTRIBUTION WIDTH 17.2 % (11.5-14.5); WHITE BLOOD COUNT 14.1 10^3/uL (4.0-10.0)
[2018-06-08 06:32] LABS: ALBUMIN 2.8 GM/DL (3.2-5.2); ALBUMIN/GLOBULIN RATIO 0.78 (1.00-1.93); ALKALINE PHOSPHATASE 126 U/L (45-117); ALT/SGPT 1139 U/L (12-78); ANION GAP 11 MEQ/L (8-16); AST/SGOT 711 U/L (7-37); BILIRUBIN,TOTAL 2.6 MG/DL (0.2-1.0); BLOOD UREA NITROGEN 131 MG/DL (7-18); CALCIUM LEVEL 8.1 MG/DL (8.8-10.2); CARBON DIOXIDE LEVEL 28 MEQ/L (21-32); CHLORIDE LEVEL 90 MEQ/L (98-107); CREATININE FOR GFR 5.22 MG/DL (0.70-1.30); GLOMERULAR FILTRATION RATE 11.5 (>42); GLUCOSE, FASTING 98 MG/DL (70-100); POTASSIUM SERUM 3.7 MEQ/L (3.5-5.1); SODIUM LEVEL 129 MEQ/L (136-145); TOTAL PROTEIN 6.4 GM/DL (6.4-8.2)
[2018-06-08 08:27] LABS: CPK CREATINE PHOSPHOKINASE 115 U/L (39-308); TROPONIN I 0.18 NG/ML (< 0.10)
[2018-06-08 08:33] LABS: CK-MB VALUE MASS 4.5 NG/ML (<3.6); MB/CK RELATIVE INDEX 3.91 (< OR =4); THYROID STIMULATING HORMONE 0.171 uIU/ML (0.358-3.740)
[2018-06-08 08:35] LABS: OSMOLALITY SERUM 317 MOSM/KG (280-301)
[2018-06-08] MEDS: FERROUS SULFATE 325MG TAB PO (09:48)
[2018-06-08] MEDS: GABAPENTIN 100 MG CAP PO ×3 (09:48→21:04)
[2018-06-08] MEDS: SENOKOT S TAB PO ×2 (09:48→21:04)
[2018-06-08] MEDS: MULTIVITAMINS/MINERALS THERAP 1 TAB PO (09:48)
[2018-06-08] MEDS: CALCITRIOL 0.25 MCG CAP (S0169) PO (09:48)
[2018-06-08 11:45] LABS: ESTIMATED AVERAGE GLUCOSE 103 MG/DL (60-110); HEMOGLOBIN A1c 5.2 %
[2018-06-08 12:14] LABS: ETHYL ALCOHOL (ETHANOL) < 0.003 % (0.000-0.010)
[2018-06-08] MEDS: CLOPIDOGREL 75 MG TAB PO (14:17)
[2018-06-08] MEDS: NS 1,000 ML IV (15:20)
[2018-06-08] MEDS: IPRATROPIUM 0.5MG/ALBUTEROL 2.5MG INH SOL UD 3ML (DUONEB)(J7620) NEB (19:20)
[2018-06-08] MEDS: rOPINIRole 1MG TAB PO (21:04)
[2018-06-08] MEDS: POLYVINYL ALCOHOL OPHTH SOLN 15 ML(LIQUITEARS) OU (21:04)
[2018-06-09 05:08] LABS: APPEARANCE, URINE HAZY (CLEAR); BACTERIA, URINE AUTO 1+ (NEGATIVE); BILIRUBIN, URINE AUTO NEGATIVE (NEGATIVE); BLOOD, URINE BLOOD 1+ (NEGATIVE); COLOR, URINE YELLOW (YELLOW); GLUCOSE, URINE (UA) AUTO NEGATIVE (NEGATIVE); KETONE, URINE AUTO NEGATIVE (NEGATIVE); LEUKOCYTE ESTERASE, URINE AUTO NEGATIVE (NEGATIVE); NITRITE, URINE AUTO NEGATIVE (NEGATIVE); PROTEIN, URINE AUTO 1+ mg/dL (NEGATIVE); RBC, URINE AUTO 4 /HPF (0-3); SQUAMOUS EPITHELIAL CELL UR AU 0 /HPF (0-6); TRANSITIONAL EPITHELIAL AUTO 1 /HPF; WBC, URINE AUTO 13 /HPF (0-3)
[2018-06-09 05:19] LABS: OSMOLALITY URINE 348 MOSM/KG (500-800); SODIUM,RANDOM URINE 12 MEQ/L
[2018-06-09] MEDS: LEVOTHYROXINE 50MCG TABLET (0.05MG) PO (05:34)
[2018-06-09] MEDS: HEPARIN SOD (PORCINE) 5000 UNITS/ML VIAL SC ×3 (05:34→21:12)
[2018-06-09 06:19] LABS: HEMATOCRIT 37.6 % (42.0-52.0); HEMOGLOBIN 12.8 g/dl (13.5-17.5); MEAN CORPUSCULAR VOLUME 88.3 fl (80.0-96.0); PLATELET COUNT, AUTOMATED 157 10^3/uL (150-450); RED BLOOD COUNT 4.26 10^6/uL (4.30-6.10); RED CELL DISTRIBUTION WIDTH 17.6 % (11.5-14.5); WHITE BLOOD COUNT 15.1 10^3/uL (4.0-10.0)
[2018-06-09 06:30] LABS: ALBUMIN 2.6 GM/DL (3.2-5.2); ALBUMIN/GLOBULIN RATIO 0.67 (1.00-1.93); ALKALINE PHOSPHATASE 133 U/L (45-117); ALT/SGPT 946 U/L (12-78); ANION GAP 13 MEQ/L (8-16); AST/SGOT 547 U/L (7-37); BILIRUBIN,TOTAL 2.6 MG/DL (0.2-1.0); BLOOD UREA NITROGEN 126 MG/DL (7-18); CALCIUM LEVEL 7.9 MG/DL (8.8-10.2); CARBON DIOXIDE LEVEL 26 MEQ/L (21-32); CHLORIDE LEVEL 93 MEQ/L (98-107); CREATININE FOR GFR 4.97 MG/DL (0.70-1.30); GLOMERULAR FILTRATION RATE 12.2 (>42); GLUCOSE, FASTING 131 MG/DL (70-100); POTASSIUM SERUM 3.7 MEQ/L (3.5-5.1); SODIUM LEVEL 132 MEQ/L (136-145); TOTAL PROTEIN 6.5 GM/DL (6.4-8.2)
[2018-06-09] MEDS: MULTIVITAMINS/MINERALS THERAP 1 TAB PO (09:13)
[2018-06-09] MEDS: FERROUS SULFATE 325MG TAB PO (09:13)
[2018-06-09] MEDS: CALCITRIOL 0.25 MCG CAP (S0169) PO (09:14)
[2018-06-09] MEDS: SENOKOT S TAB PO ×2 (09:14→21:12)
[2018-06-09] MEDS: GABAPENTIN 100 MG CAP PO ×3 (09:14→21:12)
[2018-06-09] MEDS: NS 1,000 ML IV (10:51)
[2018-06-09] MEDS: methylPREDNISolone INJ 40 MG/1 ML VIAL (J2920) IV ×2 (11:03→21:12)
[2018-06-09] MEDS: AZITHROMYCIN INJ 500 MG, VIAL MATE ADAPTER 1 EACH in D5W 250 ML IV (11:03)
[2018-06-09] MEDS: cefTRIAXone SOD 1 GM in D5W MINI-BAG PLUS 50 ML IV (11:03)
[2018-06-09] MEDS: IPRATROPIUM 0.5MG/ALBUTEROL 2.5MG INH SOL UD 3ML (DUONEB)(J7620) NEB ×4 (11:07→23:08)
[2018-06-09 14:06] LABS: AMMONIA 48 uMOL/L (<32)
[2018-06-09] MEDS: CLOPIDOGREL 75 MG TAB PO (14:55)
[2018-06-09] MEDS: LACTULOSE 20 GM/30 ML SYRUP UD PO ×2 (14:56→21:12)
[2018-06-09] MEDS: amLODIPine 10 MG TAB PO (14:57)
[2018-06-09] MEDS: rOPINIRole 1MG TAB PO (21:12)
[2018-06-09] MEDS: POLYVINYL ALCOHOL OPHTH SOLN 15 ML(LIQUITEARS) OU (21:12)
[2018-06-10] MEDS: IPRATROPIUM 0.5MG/ALBUTEROL 2.5MG INH SOL UD 3ML (DUONEB)(J7620) NEB ×6 (03:21→23:28)
[2018-06-10] MEDS: HEPARIN SOD (PORCINE) 5000 UNITS/ML VIAL SC ×3 (05:47→21:22)
[2018-06-10] MEDS: LEVOTHYROXINE 50MCG TABLET (0.05MG) PO (05:47)
[2018-06-10 05:49] LABS: HEMATOCRIT 36.9 % (42.0-52.0); HEMOGLOBIN 12.5 g/dl (13.5-17.5); MEAN CORPUSCULAR HEMOGLOBIN 30.6 pg (27.0-33.0); MEAN CORPUSCULAR HGB CONC 33.9 g/dl (32.0-36.5); MEAN CORPUSCULAR VOLUME 90.2 fl (80.0-96.0); PLATELET COUNT, AUTOMATED 131 10^3/uL (150-450); RED BLOOD COUNT 4.09 10^6/uL (4.30-6.10); RED CELL DISTRIBUTION WIDTH 17.7 % (11.5-14.5); WHITE BLOOD COUNT 19.3 10^3/uL (4.0-10.0)
[2018-06-10 06:24] LABS: AMMONIA 31 uMOL/L (<32)
[2018-06-10 06:45] LABS: ALBUMIN 2.6 GM/DL (3.2-5.2); ALBUMIN/GLOBULIN RATIO 0.81 (1.00-1.93); ALKALINE PHOSPHATASE 138 U/L (45-117); ALT/SGPT 772 U/L (12-78); ANION GAP 15 MEQ/L (8-16); AST/SGOT 396 U/L (7-37); BILIRUBIN,TOTAL 2.5 MG/DL (0.2-1.0); BLOOD UREA NITROGEN 116 MG/DL (7-18); C REACTIVE PROTEIN QUANTITATIV 8.13 MG/DL (0.00-0.30); CALCIUM LEVEL 8.1 MG/DL (8.8-10.2); CARBON DIOXIDE LEVEL 24 MEQ/L (21-32); CHLORIDE LEVEL 93 MEQ/L (98-107); CREATININE FOR GFR 4.81 MG/DL (0.70-1.30); GLOMERULAR FILTRATION RATE 12.7 (>42); GLUCOSE, FASTING 151 MG/DL (70-100); POTASSIUM SERUM 3.8 MEQ/L (3.5-5.1); SODIUM LEVEL 132 MEQ/L (136-145); TOTAL PROTEIN 5.8 GM/DL (6.4-8.2)
[2018-06-10] MEDS: CALCITRIOL 0.25 MCG CAP (S0169) PO (08:36)
[2018-06-10] MEDS: MULTIVITAMINS/MINERALS THERAP 1 TAB PO (08:36)
[2018-06-10] MEDS: GABAPENTIN 100 MG CAP PO ×3 (08:36→21:22)
[2018-06-10] MEDS: FERROUS SULFATE 325MG TAB PO (08:36)
[2018-06-10] MEDS: SENOKOT S TAB PO ×2 (08:36→21:22)
[2018-06-10] MEDS: amLODIPine 10 MG TAB PO (08:37)
[2018-06-10] MEDS: methylPREDNISolone INJ 40 MG/1 ML VIAL (J2920) IV ×2 (10:15→21:22)
[2018-06-10] MEDS: AZITHROMYCIN INJ 500 MG, VIAL MATE ADAPTER 1 EACH in D5W 250 ML IV (10:15)
[2018-06-10 11:10] LABS: HEPATITIS B SURFACE ANTIBODY NEGATIVE (POSITIVE)
[2018-06-10 11:23] LABS: HEPATITIS B SURFACE ANTIGEN NEGATIVE (NEGATIVE)
[2018-06-10] MEDS: cefTRIAXone SOD 1 GM in D5W MINI-BAG PLUS 50 ML IV (11:28)
[2018-06-10 11:49] LABS: HEPATITIS C VIRUS ABY INDEX 0.1 INDEX (<0.8)
[2018-06-10 11:52] LABS: HEPATITIS A ANTIBODY IGM NEGATIVE (NEGATIVE)
[2018-06-10] MEDS: NS 1,000 ML IV (12:04)
[2018-06-10] MEDS: CLOPIDOGREL 75 MG TAB PO (14:02)
[2018-06-10] MEDS: POLYVINYL ALCOHOL OPHTH SOLN 15 ML(LIQUITEARS) OU (21:22)
[2018-06-10] MEDS: rOPINIRole 1MG TAB PO (21:22)
[2018-06-11] MEDS: IPRATROPIUM 0.5MG/ALBUTEROL 2.5MG INH SOL UD 3ML (DUONEB)(J7620) NEB ×4 (03:19→21:25)
[2018-06-11] MEDS: LEVOTHYROXINE 50MCG TABLET (0.05MG) PO (05:32)
[2018-06-11] MEDS: HEPARIN SOD (PORCINE) 5000 UNITS/ML VIAL SC ×3 (05:33→21:18)
[2018-06-11 06:24] LABS: HEMOGLOBIN 11.4 g/dl (13.5-17.5); MEAN CORPUSCULAR HEMOGLOBIN 30.2 pg (27.0-33.0); MEAN CORPUSCULAR HGB CONC 34.5 g/dl (32.0-36.5); MEAN CORPUSCULAR VOLUME 87.5 fl (80.0-96.0); PLATELET COUNT, AUTOMATED 159 10^3/uL (150-450); RED BLOOD COUNT 3.77 10^6/uL (4.30-6.10); RED CELL DISTRIBUTION WIDTH 17.8 % (11.5-14.5); WHITE BLOOD COUNT 12.8 10^3/uL (4.0-10.0)
[2018-06-11 06:35] LABS: ALBUMIN 2.6 GM/DL (3.2-5.2); ALBUMIN/GLOBULIN RATIO 0.63 (1.00-1.93); ALKALINE PHOSPHATASE 139 U/L (45-117); ALT/SGPT 653 U/L (12-78); ANION GAP 11 MEQ/L (8-16); AST/SGOT 290 U/L (7-37); BILIRUBIN,TOTAL 2.2 MG/DL (0.2-1.0); BLOOD UREA NITROGEN 125 MG/DL (7-18); C REACTIVE PROTEIN QUANTITATIV 5.48 MG/DL (0.00-0.30); CALCIUM LEVEL 8.3 MG/DL (8.8-10.2); CARBON DIOXIDE LEVEL 25 MEQ/L (21-32); CHLORIDE LEVEL 89 MEQ/L (98-107); CREATININE FOR GFR 4.56 MG/DL (0.70-1.30); GLOMERULAR FILTRATION RATE 13.5 (>42); GLUCOSE, FASTING 161 MG/DL (70-100); POTASSIUM SERUM 4.5 MEQ/L (3.5-5.1); SODIUM LEVEL 125 MEQ/L (136-145); TOTAL PROTEIN 6.7 GM/DL (6.4-8.2)
[2018-06-11 06:42] LABS: AMMONIA 29 uMOL/L (<32)
[2018-06-11] MEDS: FERROUS SULFATE 325MG TAB PO (08:14)
[2018-06-11] MEDS: MULTIVITAMINS/MINERALS THERAP 1 TAB PO (08:14)
[2018-06-11] MEDS: SENOKOT S TAB PO ×2 (08:14→21:17)
[2018-06-11] MEDS: CALCITRIOL 0.25 MCG CAP (S0169) PO (08:14)
[2018-06-11] MEDS: GABAPENTIN 100 MG CAP PO (08:14)
[2018-06-11] MEDS: amLODIPine 10 MG TAB PO (08:14)
[2018-06-11] MEDS ORDERED: predniSONE 20 MG TAB PO (09:00)
[2018-06-11] MEDS: AZITHROMYCIN INJ 500 MG, VIAL MATE ADAPTER 1 EACH in NS 250 ML IV (10:32)
[2018-06-11] MEDS: cefTRIAXone SOD 1 GM in NS MINI-BAG PLUS 50 ML IV (11:50)
[2018-06-11] MEDS: NS 1,000 ML IV (12:09)
[2018-06-11] MEDS: CLOPIDOGREL 75 MG TAB PO (13:38)
[2018-06-11] MEDS: FUROSEMIDE 20 MG/2 ML VIAL (J1940) IV (15:52)
[2018-06-11] MEDS: predniSONE 20 MG TAB PO (15:53)
[2018-06-11] MEDS: rOPINIRole 1MG TAB PO (21:17)
[2018-06-11] MEDS: ATORVASTATIN 20 MG TAB PO (21:17)
[2018-06-11] MEDS: POLYVINYL ALCOHOL OPHTH SOLN 15 ML(LIQUITEARS) OU (21:18)
[2018-06-12] MEDS: IPRATROPIUM 0.5MG/ALBUTEROL 2.5MG INH SOL UD 3ML (DUONEB)(J7620) NEB ×5 (01:44→19:54)
[2018-06-12] MEDS: LEVOTHYROXINE 50MCG TABLET (0.05MG) PO (05:37)
[2018-06-12] MEDS: HEPARIN SOD (PORCINE) 5000 UNITS/ML VIAL SC ×3 (05:38→22:09)
[2018-06-12 06:05] LABS: HEMATOCRIT 33.9 % (42.0-52.0); HEMOGLOBIN 11.7 g/dl (13.5-17.5); MEAN CORPUSCULAR HGB CONC 34.5 g/dl (32.0-36.5); MEAN CORPUSCULAR VOLUME 86.9 fl (80.0-96.0); PLATELET COUNT, AUTOMATED 187 10^3/uL (150-450); RED CELL DISTRIBUTION WIDTH 18.1 % (11.5-14.5); WHITE BLOOD COUNT 15.4 10^3/uL (4.0-10.0)
[2018-06-12 06:25] LABS: AMMONIA 50 uMOL/L (<32)
[2018-06-12 06:27] LABS: ALBUMIN 2.7 GM/DL (3.2-5.2); ALBUMIN/GLOBULIN RATIO 0.68 (1.00-1.93); ALKALINE PHOSPHATASE 155 U/L (45-117); ALT/SGPT 616 U/L (12-78); ANION GAP 12 MEQ/L (8-16); AST/SGOT 288 U/L (7-37); BILIRUBIN,TOTAL 2.8 MG/DL (0.2-1.0); BLOOD UREA NITROGEN 137 MG/DL (7-18); C REACTIVE PROTEIN QUANTITATIV 3.46 MG/DL (0.00-0.30); CALCIUM LEVEL 8.5 MG/DL (8.8-10.2); CARBON DIOXIDE LEVEL 23 MEQ/L (21-32); CHLORIDE LEVEL 89 MEQ/L (98-107); CREATININE FOR GFR 4.39 MG/DL (0.70-1.30); GLOMERULAR FILTRATION RATE 14.1 (>42); GLUCOSE, FASTING 127 MG/DL (70-100); POTASSIUM SERUM 4.4 MEQ/L (3.5-5.1); SODIUM LEVEL 124 MEQ/L (136-145); TOTAL PROTEIN 6.7 GM/DL (6.4-8.2)
[2018-06-12] MEDS: MULTIVITAMINS/MINERALS THERAP 1 TAB PO (09:01)
[2018-06-12] MEDS: amLODIPine 10 MG TAB PO (09:01)
[2018-06-12] MEDS: SENOKOT S TAB PO ×2 (09:01→22:09)
[2018-06-12] MEDS: FERROUS SULFATE 325MG TAB PO (09:01)
[2018-06-12] MEDS: predniSONE 20 MG TAB PO (09:01)
[2018-06-12] MEDS: CALCITRIOL 0.25 MCG CAP (S0169) PO (09:01)
[2018-06-12] MEDS: AZITHROMYCIN INJ 500 MG, VIAL MATE ADAPTER 1 EACH in NS 250 ML IV (09:02)
[2018-06-12] MEDS ORDERED: FUROSEMIDE 40 MG/4 ML VIAL (J1940) As Ordered (09:22)
[2018-06-12] MEDS: FUROSEMIDE 40 MG/4 ML VIAL (J1940) IV (09:28)
[2018-06-12 10:12] LABS: TROPONIN I 0.19 NG/ML (< 0.10)
[2018-06-12] MEDS ORDERED: LIDOCAINE 2% MDV 20 ML VIAL As Ordered (10:15)
[2018-06-12] MEDS ORDERED: HEPARIN 1,000 UNITS/ML 10ML VIAL (FOR RADIOLOGY& DIALYSIS ONLY) As Ordered (10:15)
[2018-06-12 10:21] LABS: CPK CREATINE PHOSPHOKINASE 1111 U/L (39-308)
[2018-06-12] MEDS ORDERED: fentaNYL 100 MCG/2 ML INJECTION (J3010) As Ordered (10:37)
[2018-06-12] MEDS ORDERED: MIDAZOLAM INJ 2 MG/2 ML VIAL (J2250) As Ordered (10:37)
[2018-06-12 13:02] LABS: CHOLESTEROL LEVEL 104 MG/DL (<200); CHOLESTEROL RISK RATIO 14.857 (<5); HDL CHOLESTEROL 7 MG/DL (>40); LDL CHOLESTEROL 43.4 MG/DL (<100); NON-HDL-C 97 MG/DL; TRIGLYCERIDES LEVEL 268 MG/DL (<150)
[2018-06-12] MEDS: HEPARIN 1,000 UNITS/ML 10ML VIAL (FOR RADIOLOGY& DIALYSIS ONLY) IV (13:55)
[2018-06-12] MEDS: HEPARIN 1,000 UNITS/ML 10ML VIAL (FOR RADIOLOGY& DIALYSIS ONLY) XX ×2 (13:56→22:08)
[2018-06-12] MEDS: CLOPIDOGREL 75 MG TAB PO (14:02)
[2018-06-12] MEDS: cefTRIAXone SOD 1 GM in NS MINI-BAG PLUS 50 ML IV (14:02)
[2018-06-12 16:11] LABS: ABG BASE EXCESS -6.1 (-2.0-2.0); ABG HCO3 20.4 MEQ/L (22.0-26.0); ABG O2 SATURATION 93.8 % (95.0-99.0); ABG PARTIAL PRESSURE CO2 44.2 mmHg (35.0-45.0); ABG PARTIAL PRESSURE O2 72.5 mmHg (75.0-100.0); ABG STANDARD HCO3 19.4 MEQ/L (22.0-26.0); ABG TOTAL CO2 21.8 MEQ/L (23.0-31.0); ABG pH (ARTERIAL) 7.282 UNITS (7.350-7.450)
[2018-06-12] MEDS: methylPREDNISolone INJ 125 MG/2 ML VIAL (J2930) IV (16:16)
[2018-06-12] MEDS ORDERED: FUROSEMIDE 100 MG/10 ML VIAL (J1940) As Ordered (16:57)
[2018-06-12] MEDS: FUROSEMIDE 100 MG/10 ML VIAL (J1940) IV (17:00)
[2018-06-12 17:17] LABS: LACTIC ACID SEPSIS PROTOCOL 2.8 MMOL/L (0.4-2.0)
[2018-06-12] MEDS: FUROSEMIDE injection 250 MG in D5W 225 ML IV (17:44)
[2018-06-12] MEDS ORDERED: ISOVUE-370 76% 100ML VIAL (Q9967) As Ordered (18:03)
[2018-06-12 21:01] LABS: CK-MB VALUE MASS 33.5 NG/ML (<3.6); TROPONIN I 2.39 NG/ML (< 0.10)
[2018-06-12 21:16] LABS: CPK CREATINE PHOSPHOKINASE 1224 U/L (39-308); MB/CK RELATIVE INDEX 2.73 (< OR =4)
[2018-06-12] MEDS ORDERED: HEPARIN 1,000 UNITS/ML 10ML VIAL (FOR RADIOLOGY& DIALYSIS ONLY) XX (21:45)
[2018-06-12] MEDS ORDERED: SODIUM CHLORIDE 0.9% INJ 10 ML SYR IV (21:45)
[2018-06-12] MEDS: POLYVINYL ALCOHOL OPHTH SOLN 15 ML(LIQUITEARS) OU (22:08)
[2018-06-12] MEDS: rOPINIRole 1MG TAB PO (22:21)
[2018-06-13 00:02] LABS: APPEARANCE, URINE CLEAR (CLEAR); BACTERIA, URINE AUTO NEGATIVE (NEGATIVE); BILIRUBIN, URINE AUTO NEGATIVE (NEGATIVE); BLOOD, URINE BLOOD 2+ (NEGATIVE); COLOR, URINE AMBER (YELLOW); GLUCOSE, URINE (UA) AUTO NEGATIVE (NEGATIVE); GRANULAR CAST, URINE AUTO 1 /LPF; KETONE, URINE AUTO NEGATIVE (NEGATIVE); LEUKOCYTE ESTERASE, URINE AUTO NEGATIVE (NEGATIVE); MUCUS, URINE SMALL (NEGATIVE); NITRITE, URINE AUTO NEGATIVE (NEGATIVE); PROTEIN, URINE AUTO NEGATIVE (NEGATIVE); RBC, URINE AUTO 16 /HPF (0-3); SPECIFIC GRAVITY URINE AUTO 1.017 (1.002-1.035); SQUAMOUS EPITHELIAL CELL UR AU 0 /HPF (0-6); WBC, URINE AUTO 8 /HPF (0-3)
[2018-06-13] MEDS: IPRATROPIUM 0.5MG/ALBUTEROL 2.5MG INH SOL UD 3ML (DUONEB)(J7620) NEB ×4 (01:47→20:22)
[2018-06-13 05:12] LABS: HEMATOCRIT 35.8 % (42.0-52.0); HEMOGLOBIN 11.9 g/dl (13.5-17.5); MEAN CORPUSCULAR HEMOGLOBIN 30.1 pg (27.0-33.0); MEAN CORPUSCULAR HGB CONC 33.2 g/dl (32.0-36.5); MEAN CORPUSCULAR VOLUME 90.6 fl (80.0-96.0); PLATELET COUNT, AUTOMATED 144 10^3/uL (150-450); RED BLOOD COUNT 3.95 10^6/uL (4.30-6.10); RED CELL DISTRIBUTION WIDTH 18.6 % (11.5-14.5); WHITE BLOOD COUNT 13.5 10^3/uL (4.0-10.0)
[2018-06-13 05:24] LABS: PARTIAL THROMBOPLASTIN TIME 35.8 SECONDS (25.4-37.6)
[2018-06-13 05:29] LABS: AMMONIA 22 uMOL/L (<32)
[2018-06-13 05:33] LABS: LACTIC ACID SEPSIS PROTOCOL 1.8 MMOL/L (0.4-2.0)
[2018-06-13 05:33] LABS: ALBUMIN 2.8 GM/DL (3.2-5.2); ALBUMIN/GLOBULIN RATIO 0.88 (1.00-1.93); ALKALINE PHOSPHATASE 136 U/L (45-117); ALT/SGPT 556 U/L (12-78); ANION GAP 12 MEQ/L (8-16); AST/SGOT 263 U/L (7-37); BILIRUBIN,TOTAL 3.4 MG/DL (0.2-1.0); BLOOD UREA NITROGEN 76 MG/DL (7-18); C REACTIVE PROTEIN QUANTITATIV 3.87 MG/DL (0.00-0.30); CALCIUM LEVEL 8.3 MG/DL (8.8-10.2); CARBON DIOXIDE LEVEL 23 MEQ/L (21-32); CHLORIDE LEVEL 99 MEQ/L (98-107); CK-MB VALUE MASS 29.5 NG/ML (<3.6); CPK CREATINE PHOSPHOKINASE 722 U/L (39-308); CREATININE FOR GFR 2.93 MG/DL (0.70-1.30); GLOMERULAR FILTRATION RATE 22.5 (>42); GLUCOSE, FASTING 140 MG/DL (70-100); MAGNESIUM LEVEL 2.8 MG/DL (1.8-2.4); MB/CK RELATIVE INDEX 4.08 (< OR =4); PHOSPHORUS LEVEL 3.8 MG/DL (2.5-4.9); POTASSIUM SERUM 4.4 MEQ/L (3.5-5.1); SODIUM LEVEL 134 MEQ/L (136-145)
[2018-06-13 05:39] LABS: TROPONIN I 4.92 NG/ML (< 0.10)
[2018-06-13 06:31] LABS: IONIZED CALCIUM 4.5 MG/DL (4.5-5.3)
[2018-06-13] MEDS: LEVOTHYROXINE 50MCG TABLET (0.05MG) PO (06:46)
[2018-06-13] MEDS: HEPARIN SOD (PORCINE) 5000 UNITS/ML VIAL SC ×3 (06:46→21:00)
[2018-06-13] MEDS: NITROGLYCERIN 2% OINT 1 GM *U/D* PKT TOP ×4 (08:56→21:01)
[2018-06-13] MEDS: MULTIVITAMINS/MINERALS THERAP 1 TAB PO (08:56)
[2018-06-13] MEDS: FERROUS SULFATE 325MG TAB PO (08:56)
[2018-06-13] MEDS: SENOKOT S TAB PO ×2 (08:56→20:59)
[2018-06-13] MEDS: amLODIPine 10 MG TAB PO (08:56)
[2018-06-13] MEDS: CALCITRIOL 0.25 MCG CAP (S0169) PO (09:02)
[2018-06-13] MEDS: AZITHROMYCIN INJ 500 MG, VIAL MATE ADAPTER 1 EACH in NS 250 ML IV (09:02)
[2018-06-13] MEDS: cefTRIAXone SOD 1 GM in NS MINI-BAG PLUS 50 ML IV (10:25)
[2018-06-13] MEDS: CLOPIDOGREL 75 MG TAB PO (13:00)
[2018-06-13 13:38] LABS: CK-MB VALUE MASS 18.7 NG/ML (<3.6); CPK CREATINE PHOSPHOKINASE 679 U/L (39-308); MB/CK RELATIVE INDEX 2.75 (< OR =4)
[2018-06-13 13:48] LABS: TROPONIN I 4.74 NG/ML (< 0.10)
[2018-06-13 15:24] LABS: ABG BASE EXCESS -1.1 (-2.0-2.0); ABG HCO3 23.2 MEQ/L (22.0-26.0); ABG O2 SATURATION 92.7 % (95.0-99.0); ABG PARTIAL PRESSURE CO2 37.6 mmHg (35.0-45.0); ABG PARTIAL PRESSURE O2 65.6 mmHg (75.0-100.0); ABG STANDARD HCO3 23.5 MEQ/L (22.0-26.0); ABG TOTAL CO2 24.4 MEQ/L (23.0-31.0); ABG pH (ARTERIAL) 7.409 UNITS (7.350-7.450)
[2018-06-13 16:06] LABS: IONIZED CALCIUM 4.5 MG/DL (4.5-5.3)
[2018-06-13 16:10] LABS: HEMATOCRIT 34.7 % (42.0-52.0); MEAN CORPUSCULAR HEMOGLOBIN 30.1 pg (27.0-33.0); MEAN CORPUSCULAR HGB CONC 34.6 g/dl (32.0-36.5); PLATELET COUNT, AUTOMATED 166 10^3/uL (150-450); RED BLOOD COUNT 3.99 10^6/uL (4.30-6.10); RED CELL DISTRIBUTION WIDTH 18.6 % (11.5-14.5); WHITE BLOOD COUNT 15.1 10^3/uL (4.0-10.0)
[2018-06-13 16:33] LABS: ANION GAP 9 MEQ/L (8-16); BLOOD UREA NITROGEN 53 MG/DL (7-18); CALCIUM LEVEL 8.4 MG/DL (8.8-10.2); CARBON DIOXIDE LEVEL 27 MEQ/L (21-32); CHLORIDE LEVEL 99 MEQ/L (98-107); CREATININE FOR GFR 2.47 MG/DL (0.70-1.30); GLOMERULAR FILTRATION RATE 27.4 (>42); GLUCOSE, FASTING 145 MG/DL (70-100); MAGNESIUM LEVEL 3.1 MG/DL (1.8-2.4); PHOSPHORUS LEVEL 3.3 MG/DL (2.5-4.9); POTASSIUM SERUM 4.9 MEQ/L (3.5-5.1); SODIUM LEVEL 135 MEQ/L (136-145)
[2018-06-13] MEDS: ATORVASTATIN 20 MG TAB PO (20:59)
[2018-06-13] MEDS: HALOPERIDOL 5 MG/ML VIAL (J1630) IV (20:59)
[2018-06-13] MEDS: POLYVINYL ALCOHOL OPHTH SOLN 15 ML(LIQUITEARS) OU (21:00)
[2018-06-13 21:33] LABS: CPK CREATINE PHOSPHOKINASE 502 U/L (39-308)
[2018-06-13 21:34] LABS: CK-MB VALUE MASS 14.2 NG/ML (<3.6); MB/CK RELATIVE INDEX 2.82 (< OR =4)
[2018-06-13] MEDS: rOPINIRole 1MG TAB PO (21:36)
[2018-06-14] MEDS: IPRATROPIUM 0.5MG/ALBUTEROL 2.5MG INH SOL UD 3ML (DUONEB)(J7620) NEB ×4 (01:03→19:35)
[2018-06-14] MEDS: NITROGLYCERIN 2% OINT 1 GM *U/D* PKT TOP ×4 (01:06→13:11)
[2018-06-14 05:03] LABS: HEMATOCRIT 33.4 % (42.0-52.0); HEMOGLOBIN 11.3 g/dl (13.5-17.5); MEAN CORPUSCULAR HEMOGLOBIN 30.2 pg (27.0-33.0); MEAN CORPUSCULAR HGB CONC 33.8 g/dl (32.0-36.5); MEAN CORPUSCULAR VOLUME 89.3 fl (80.0-96.0); PLATELET COUNT, AUTOMATED 162 10^3/uL (150-450); RED BLOOD COUNT 3.74 10^6/uL (4.30-6.10); RED CELL DISTRIBUTION WIDTH 18.9 % (11.5-14.5); WHITE BLOOD COUNT 15.9 10^3/uL (4.0-10.0)
[2018-06-14 05:13] LABS: PARTIAL THROMBOPLASTIN TIME 33.4 SECONDS (25.4-37.6)
[2018-06-14 05:18] LABS: IONIZED CALCIUM 4.6 MG/DL (4.5-5.3)
[2018-06-14 05:27] LABS: AMMONIA < 10 uMOL/L (<32)
[2018-06-14 05:32] LABS: ALBUMIN 2.7 GM/DL (3.2-5.2); ALBUMIN/GLOBULIN RATIO 0.87 (1.00-1.93); ALKALINE PHOSPHATASE 123 U/L (45-117); ALT/SGPT 487 U/L (12-78); ANION GAP 7 MEQ/L (8-16); AST/SGOT 243 U/L (7-37); BILIRUBIN,TOTAL 4.2 MG/DL (0.2-1.0); BLOOD UREA NITROGEN 38 MG/DL (7-18); C REACTIVE PROTEIN QUANTITATIV 6.67 MG/DL (0.00-0.30); CALCIUM LEVEL 8.5 MG/DL (8.8-10.2); CARBON DIOXIDE LEVEL 27 MEQ/L (21-32); CHLORIDE LEVEL 102 MEQ/L (98-107); CPK CREATINE PHOSPHOKINASE 413 U/L (39-308); CREATININE FOR GFR 2.25 MG/DL (0.70-1.30); GLOMERULAR FILTRATION RATE 30.5 (>42); GLUCOSE, FASTING 122 MG/DL (70-100); MAGNESIUM LEVEL 2.9 MG/DL (1.8-2.4); MB/CK RELATIVE INDEX 2.17 (< OR =4); PHOSPHORUS LEVEL 2.5 MG/DL (2.5-4.9); SODIUM LEVEL 136 MEQ/L (136-145); TOTAL PROTEIN 5.8 GM/DL (6.4-8.2)
[2018-06-14 05:37] LABS: TROPONIN I 2.89 NG/ML (< 0.10)
[2018-06-14] MEDS: HEPARIN SOD (PORCINE) 5000 UNITS/ML VIAL SC ×3 (06:17→22:49)
[2018-06-14] MEDS: LEVOTHYROXINE 50MCG TABLET (0.05MG) PO (06:17)
[2018-06-14] MEDS: MULTIVITAMINS/MINERALS THERAP 1 TAB PO (08:14)
[2018-06-14] MEDS: FERROUS SULFATE 325MG TAB PO (08:14)
[2018-06-14] MEDS: amLODIPine 10 MG TAB PO (08:15)
[2018-06-14] MEDS: LISINOPRIL 5 MG TAB PO (08:15)
[2018-06-14] MEDS: SENOKOT S TAB PO ×2 (08:15→20:51)
[2018-06-14] MEDS: CALCITRIOL 0.25 MCG CAP (S0169) PO (08:16)
[2018-06-14] MEDS: AZITHROMYCIN INJ 500 MG, VIAL MATE ADAPTER 1 EACH in NS 250 ML IV (10:17)
[2018-06-14] MEDS: **hydrALAZINE HCL** 25 MG TAB PO ×2 (10:18→13:11)
[2018-06-14] MEDS: BISACODYL 10 MG SUPP PR (11:50)
[2018-06-14] MEDS: cefTRIAXone SOD 1 GM in NS MINI-BAG PLUS 50 ML IV (11:50)
[2018-06-14] MEDS: guaiFENesin ER 600 MG TAB PO ×2 (11:50→20:12)
[2018-06-14] MEDS ORDERED: ISOSORBIDE DIN. (ISORDIL) 20 MG TAB PO (14:00)
[2018-06-14] MEDS: ISOSORBIDE DIN. (ISORDIL) 30 MG TAB PO ×2 (15:36→20:12)
[2018-06-14] MEDS: CLOPIDOGREL 75 MG TAB PO (15:36)
[2018-06-14 16:28] LABS: IONIZED CALCIUM 4.1 MG/DL (4.5-5.3)
[2018-06-14 16:35] LABS: HEMOGLOBIN 11.2 g/dl (13.5-17.5); MEAN CORPUSCULAR HEMOGLOBIN 30.1 pg (27.0-33.0); MEAN CORPUSCULAR HGB CONC 33.9 g/dl (32.0-36.5); MEAN CORPUSCULAR VOLUME 88.7 fl (80.0-96.0); PLATELET COUNT, AUTOMATED 152 10^3/uL (150-450); RED BLOOD COUNT 3.72 10^6/uL (4.30-6.10); RED CELL DISTRIBUTION WIDTH 19.1 % (11.5-14.5); WHITE BLOOD COUNT 18.4 10^3/uL (4.0-10.0)
[2018-06-14 16:43] LABS: PARTIAL THROMBOPLASTIN TIME 37.7 SECONDS (25.4-37.6)
[2018-06-14 16:48] LABS: ANION GAP 9 MEQ/L (8-16); BLOOD UREA NITROGEN 35 MG/DL (7-18); CALCIUM LEVEL 8.1 MG/DL (8.8-10.2); CARBON DIOXIDE LEVEL 24 MEQ/L (21-32); CHLORIDE LEVEL 103 MEQ/L (98-107); CREATININE FOR GFR 2.22 MG/DL (0.70-1.30); GLUCOSE, FASTING 109 MG/DL (70-100); MAGNESIUM LEVEL 2.9 MG/DL (1.8-2.4); PHOSPHORUS LEVEL 2.5 MG/DL (2.5-4.9); POTASSIUM SERUM 4.6 MEQ/L (3.5-5.1); SODIUM LEVEL 136 MEQ/L (136-145)
[2018-06-14] MEDS ORDERED: CALCIUM GLUCONATE 1,000 MG in NS 100 ML IV (18:00)
[2018-06-14] MEDS: CALCIUM GLUCONATE 1,000 MG in NS 100 ML IV ×2 (18:24→20:11)
[2018-06-14] MEDS: CARVedilol 3.125 MG TAB PO (20:12)
[2018-06-14] MEDS: rOPINIRole 1MG TAB PO (20:12)
[2018-06-14] MEDS: POLYVINYL ALCOHOL OPHTH SOLN 15 ML(LIQUITEARS) OU (20:13)
[2018-06-14] MEDS: **hydrALAZINE** 50 MG TAB PO (22:48)
[2018-06-15] MEDS: IPRATROPIUM 0.5MG/ALBUTEROL 2.5MG INH SOL UD 3ML (DUONEB)(J7620) NEB ×4 (02:04→20:06)
[2018-06-15 04:42] LABS: HEMATOCRIT 32.7 % (42.0-52.0); HEMOGLOBIN 11.2 g/dl (13.5-17.5); MEAN CORPUSCULAR HEMOGLOBIN 29.9 pg (27.0-33.0); MEAN CORPUSCULAR HGB CONC 34.3 g/dl (32.0-36.5); MEAN CORPUSCULAR VOLUME 87.2 fl (80.0-96.0); PLATELET COUNT, AUTOMATED 161 10^3/uL (150-450); RED BLOOD COUNT 3.75 10^6/uL (4.30-6.10); RED CELL DISTRIBUTION WIDTH 19.6 % (11.5-14.5); WHITE BLOOD COUNT 17.8 10^3/uL (4.0-10.0)
[2018-06-15 04:43] LABS: IONIZED CALCIUM 4.7 MG/DL (4.5-5.3)
[2018-06-15] MEDS: HEPARIN SOD (PORCINE) 5000 UNITS/ML VIAL SC ×3 (05:01→22:09)
[2018-06-15] MEDS: LEVOTHYROXINE 50MCG TABLET (0.05MG) PO (05:01)
[2018-06-15] MEDS: **hydrALAZINE** 50 MG TAB PO (05:01)
[2018-06-15 05:02] LABS: PARTIAL THROMBOPLASTIN TIME 46.3 SECONDS (25.4-37.6)
[2018-06-15 05:12] LABS: AMMONIA < 10 uMOL/L (<32)
[2018-06-15 05:13] LABS: ANION GAP 6 MEQ/L (8-16); BLOOD UREA NITROGEN 31 MG/DL (7-18); CALCIUM LEVEL 8.7 MG/DL (8.8-10.2); CARBON DIOXIDE LEVEL 28 MEQ/L (21-32); CHLORIDE LEVEL 103 MEQ/L (98-107); CREATININE FOR GFR 2.01 MG/DL (0.70-1.30); GLOMERULAR FILTRATION RATE 34.7 (>42); GLUCOSE, FASTING 113 MG/DL (70-100); MAGNESIUM LEVEL 2.8 MG/DL (1.8-2.4); PHOSPHORUS LEVEL 1.8 MG/DL (2.5-4.9); POTASSIUM SERUM 4.6 MEQ/L (3.5-5.1); SODIUM LEVEL 137 MEQ/L (136-145)
[2018-06-15] MEDS: SODIUM PHOSPHATE INJ 30 MMOL in D5W 250 ML IV (06:42)
[2018-06-15 09:06] LABS: ALBUMIN 2.5 GM/DL (3.2-5.2); ALBUMIN/GLOBULIN RATIO 0.74 (1.00-1.93); ALKALINE PHOSPHATASE 118 U/L (45-117); ALT/SGPT 398 U/L (12-78); AST/SGOT 199 U/L (7-37); BILIRUBIN,DIRECT 2.5 MG/DL (0.0-0.2); TOTAL PROTEIN 5.9 GM/DL (6.4-8.2)
[2018-06-15] MEDS: FERROUS SULFATE 325MG TAB PO (09:46)
[2018-06-15] MEDS: VALSARTAN 80 MG TAB (DIOVAN) PO (09:46)
[2018-06-15] MEDS: CARVedilol 3.125 MG TAB PO ×2 (09:46→20:24)
[2018-06-15] MEDS: amLODIPine 10 MG TAB PO (09:47)
[2018-06-15] MEDS: ISOSORBIDE DIN. (ISORDIL) 30 MG TAB PO (09:47)
[2018-06-15] MEDS: guaiFENesin ER 600 MG TAB PO ×2 (09:47→20:23)
[2018-06-15] MEDS: SENOKOT S TAB PO ×2 (09:47→20:23)
[2018-06-15] MEDS: CALCITRIOL 0.25 MCG CAP (S0169) PO (09:47)
[2018-06-15] MEDS: MULTIVITAMINS/MINERALS THERAP 1 TAB PO (09:48)
[2018-06-15 09:53] LABS: ABG BASE EXCESS -0.1 (-2.0-2.0); ABG HCO3 23.8 MEQ/L (22.0-26.0); ABG O2 SATURATION 93.8 % (95.0-99.0); ABG PARTIAL PRESSURE CO2 36.2 mmHg (35.0-45.0); ABG PARTIAL PRESSURE O2 66.2 mmHg (75.0-100.0); ABG STANDARD HCO3 24.4 MEQ/L (22.0-26.0); ABG TOTAL CO2 24.9 MEQ/L (23.0-31.0); ABG pH (ARTERIAL) 7.436 UNITS (7.350-7.450)
[2018-06-15] MEDS: AZITHROMYCIN INJ 500 MG, VIAL MATE ADAPTER 1 EACH in NS 250 ML IV (10:00)
[2018-06-15] MEDS: NS 200 ML IV (11:30)
[2018-06-15] MEDS: cefTRIAXone SOD 1 GM in NS MINI-BAG PLUS 50 ML IV (11:40)
[2018-06-15 12:53] LABS: HEMATOCRIT 31.8 % (42.0-52.0); HEMOGLOBIN 10.7 g/dl (13.5-17.5); MEAN CORPUSCULAR HEMOGLOBIN 30.3 pg (27.0-33.0); MEAN CORPUSCULAR HGB CONC 33.6 g/dl (32.0-36.5); MEAN CORPUSCULAR VOLUME 90.1 fl (80.0-96.0); PLATELET COUNT, AUTOMATED 146 10^3/uL (150-450); RED BLOOD COUNT 3.53 10^6/uL (4.30-6.10); RED CELL DISTRIBUTION WIDTH 19.3 % (11.5-14.5); WHITE BLOOD COUNT 16.1 10^3/uL (4.0-10.0)
[2018-06-15 12:58] LABS: IONIZED CALCIUM 4.4 MG/DL (4.5-5.3)
[2018-06-15 13:18] LABS: ANION GAP 9 MEQ/L (8-16); BLOOD UREA NITROGEN 29 MG/DL (7-18); CARBON DIOXIDE LEVEL 26 MEQ/L (21-32); CHLORIDE LEVEL 104 MEQ/L (98-107); CREATININE FOR GFR 1.83 MG/DL (0.70-1.30); GLOMERULAR FILTRATION RATE 38.7 (>42); GLUCOSE, FASTING 122 MG/DL (70-100); MAGNESIUM LEVEL 2.7 MG/DL (1.8-2.4); POTASSIUM SERUM 4.2 MEQ/L (3.5-5.1); SODIUM LEVEL 139 MEQ/L (136-145)
[2018-06-15] MEDS: **hydrALAZINE** 10 MG TAB PO ×2 (14:00→22:08)
[2018-06-15] MEDS: CLOPIDOGREL 75 MG TAB PO (14:21)
[2018-06-15] MEDS ORDERED: CALCIUM GLUCONATE IV (14:45)
[2018-06-15] MEDS ORDERED: MATE ADAPTER IV (14:45)
[2018-06-15] MEDS ORDERED: NS IV (14:45)
[2018-06-15] MEDS: CALCIUM GLUCONATE 1,000 MG, VIAL MATE ADAPTER 1 EACH in NS 100 ML IV (14:45)
[2018-06-15 16:54] LABS: PARTIAL THROMBOPLASTIN TIME 48.5 SECONDS (25.4-37.6)
[2018-06-15] MEDS: ISOSORBIDE DIN (ISORDIL) 10 MG TAB PO (17:40)
[2018-06-15 19:59] LABS: IONIZED CALCIUM 4.6 MG/DL (4.5-5.3)
[2018-06-15 20:00] LABS: HEMATOCRIT 31.7 % (42.0-52.0); HEMOGLOBIN 10.8 g/dl (13.5-17.5); MEAN CORPUSCULAR HEMOGLOBIN 30.3 pg (27.0-33.0); MEAN CORPUSCULAR HGB CONC 34.1 g/dl (32.0-36.5); MEAN CORPUSCULAR VOLUME 88.8 fl (80.0-96.0); PLATELET COUNT, AUTOMATED 149 10^3/uL (150-450); RED BLOOD COUNT 3.57 10^6/uL (4.30-6.10); RED CELL DISTRIBUTION WIDTH 19.5 % (11.5-14.5); WHITE BLOOD COUNT 16.2 10^3/uL (4.0-10.0)
[2018-06-15 20:21] LABS: ANION GAP 6 MEQ/L (8-16); BLOOD UREA NITROGEN 27 MG/DL (7-18); CALCIUM LEVEL 8.4 MG/DL (8.8-10.2); CARBON DIOXIDE LEVEL 29 MEQ/L (21-32); CHLORIDE LEVEL 103 MEQ/L (98-107); CREATININE FOR GFR 1.68 MG/DL (0.70-1.30); GLOMERULAR FILTRATION RATE 42.7 (>42); GLUCOSE, FASTING 119 MG/DL (70-100); MAGNESIUM LEVEL 2.7 MG/DL (1.8-2.4); PHOSPHORUS LEVEL 3.8 MG/DL (2.5-4.9); POTASSIUM SERUM 4.4 MEQ/L (3.5-5.1); SODIUM LEVEL 138 MEQ/L (136-145)
[2018-06-15] MEDS: rOPINIRole 1MG TAB PO (20:23)
[2018-06-15] MEDS: POLYVINYL ALCOHOL OPHTH SOLN 15 ML(LIQUITEARS) OU (20:24)
[2018-06-15] MEDS: CALCIUM GLUCONATE 1,000 MG in NS 100 ML IV (22:09)
[2018-06-16] MEDS: IPRATROPIUM 0.5MG/ALBUTEROL 2.5MG INH SOL UD 3ML (DUONEB)(J7620) NEB ×4 (01:06→19:57)
[2018-06-16 04:44] LABS: IONIZED CALCIUM 4.7 MG/DL (4.5-5.3)
[2018-06-16 04:48] LABS: HEMATOCRIT 32.7 % (42.0-52.0); MEAN CORPUSCULAR HEMOGLOBIN 30.1 pg (27.0-33.0); MEAN CORPUSCULAR HGB CONC 33.6 g/dl (32.0-36.5); MEAN CORPUSCULAR VOLUME 89.6 fl (80.0-96.0); PLATELET COUNT, AUTOMATED 150 10^3/uL (150-450); RED BLOOD COUNT 3.65 10^6/uL (4.30-6.10); RED CELL DISTRIBUTION WIDTH 19.6 % (11.5-14.5); WHITE BLOOD COUNT 15.2 10^3/uL (4.0-10.0)
[2018-06-16 05:13] LABS: PARTIAL THROMBOPLASTIN TIME 53.8 SECONDS (25.4-37.6)
[2018-06-16 05:13] LABS: ANION GAP 5 MEQ/L (8-16); BLOOD UREA NITROGEN 25 MG/DL (7-18); C REACTIVE PROTEIN QUANTITATIV 8.82 MG/DL (0.00-0.30); CALCIUM LEVEL 8.7 MG/DL (8.8-10.2); CARBON DIOXIDE LEVEL 30 MEQ/L (21-32); CHLORIDE LEVEL 103 MEQ/L (98-107); CREATININE FOR GFR 1.65 MG/DL (0.70-1.30); GLOMERULAR FILTRATION RATE 43.6 (>42); GLUCOSE, FASTING 86 MG/DL (70-100); MAGNESIUM LEVEL 2.6 MG/DL (1.8-2.4); PHOSPHORUS LEVEL 2.5 MG/DL (2.5-4.9); POTASSIUM SERUM 4.2 MEQ/L (3.5-5.1); SODIUM LEVEL 138 MEQ/L (136-145)
[2018-06-16 05:14] LABS: AMMONIA < 10 uMOL/L (<32)
[2018-06-16] MEDS: **hydrALAZINE** 10 MG TAB PO ×3 (06:00→21:46)
[2018-06-16] MEDS: HEPARIN SOD (PORCINE) 5000 UNITS/ML VIAL SC ×3 (06:15→21:46)
[2018-06-16] MEDS: LEVOTHYROXINE 50MCG TABLET (0.05MG) PO (06:15)
[2018-06-16] MEDS: ISOSORBIDE DIN (ISORDIL) 10 MG TAB PO ×3 (06:15→17:11)
[2018-06-16] MEDS: ENTRESTO 24-26MG TABLET (SACUBITRIL/VALSARTAN) PO ×2 (08:54→21:45)
[2018-06-16] MEDS: FERROUS SULFATE 325MG TAB PO (08:54)
[2018-06-16] MEDS: CARVedilol 3.125 MG TAB PO ×2 (08:54→21:45)
[2018-06-16] MEDS: CALCITRIOL 0.25 MCG CAP (S0169) PO (08:55)
[2018-06-16] MEDS: guaiFENesin ER 600 MG TAB PO ×2 (08:55→21:45)
[2018-06-16] MEDS: SENOKOT S TAB PO ×2 (08:55→21:46)
[2018-06-16] MEDS: MULTIVITAMINS/MINERALS THERAP 1 TAB PO (08:55)
[2018-06-16] MEDS: AZITHROMYCIN INJ 500 MG, VIAL MATE ADAPTER 1 EACH in NS 250 ML IV (09:59)
[2018-06-16] MEDS: LATANOPROST 0.005% OPHTH SOLN 2.5 ML OU (09:59)
[2018-06-16] MEDS: cefTRIAXone SOD 1 GM in NS MINI-BAG PLUS 50 ML IV (11:12)
[2018-06-16 12:19] LABS: HEMATOCRIT 32.6 % (42.0-52.0); HEMOGLOBIN 10.8 g/dl (13.5-17.5); MEAN CORPUSCULAR HEMOGLOBIN 30.2 pg (27.0-33.0); MEAN CORPUSCULAR HGB CONC 33.1 g/dl (32.0-36.5); MEAN CORPUSCULAR VOLUME 91.1 fl (80.0-96.0); PLATELET COUNT, AUTOMATED 148 10^3/uL (150-450); RED BLOOD COUNT 3.58 10^6/uL (4.30-6.10); RED CELL DISTRIBUTION WIDTH 19.7 % (11.5-14.5); WHITE BLOOD COUNT 15.3 10^3/uL (4.0-10.0)
[2018-06-16 12:22] LABS: IONIZED CALCIUM 4.5 MG/DL (4.5-5.3)
[2018-06-16 12:42] LABS: ANION GAP 10 MEQ/L (8-16); BLOOD UREA NITROGEN 26 MG/DL (7-18); CALCIUM LEVEL 8.2 MG/DL (8.8-10.2); CARBON DIOXIDE LEVEL 24 MEQ/L (21-32); CHLORIDE LEVEL 106 MEQ/L (98-107); CREATININE FOR GFR 1.51 MG/DL (0.70-1.30); GLOMERULAR FILTRATION RATE 48.3 (>42); GLUCOSE, FASTING 104 MG/DL (70-100); MAGNESIUM LEVEL 2.7 MG/DL (1.8-2.4); PHOSPHORUS LEVEL 2.9 MG/DL (2.5-4.9); POTASSIUM SERUM 4.4 MEQ/L (3.5-5.1); SODIUM LEVEL 140 MEQ/L (136-145)
[2018-06-16] MEDS: CALCIUM GLUCONATE 1,000 MG, VIAL MATE ADAPTER 1 EACH in NS 100 ML IV (12:51)
[2018-06-16 14:31] LABS: ALBUMIN 2.3 GM/DL (3.2-5.2); ALBUMIN/GLOBULIN RATIO 0.72 (1.00-1.93); ALKALINE PHOSPHATASE 127 U/L (45-117); ALT/SGPT 336 U/L (12-78); AST/SGOT 182 U/L (7-37); BILIRUBIN,DIRECT 1.7 MG/DL (0.0-0.2); TOTAL PROTEIN 5.5 GM/DL (6.4-8.2)
[2018-06-16] MEDS: CLOPIDOGREL 75 MG TAB PO (14:50)
[2018-06-16 20:19] LABS: HEMATOCRIT 35.9 % (42.0-52.0); HEMOGLOBIN 11.7 g/dl (13.5-17.5); MEAN CORPUSCULAR HEMOGLOBIN 29.8 pg (27.0-33.0); MEAN CORPUSCULAR HGB CONC 32.6 g/dl (32.0-36.5); MEAN CORPUSCULAR VOLUME 91.6 fl (80.0-96.0); PLATELET COUNT, AUTOMATED 165 10^3/uL (150-450); RED BLOOD COUNT 3.92 10^6/uL (4.30-6.10); WHITE BLOOD COUNT 20.1 10^3/uL (4.0-10.0)
[2018-06-16 20:21] LABS: IONIZED CALCIUM 4.5 MG/DL (4.5-5.3)
[2018-06-16 20:42] LABS: ANION GAP 9 MEQ/L (8-16); BLOOD UREA NITROGEN 27 MG/DL (7-18); CALCIUM LEVEL 8.4 MG/DL (8.8-10.2); CARBON DIOXIDE LEVEL 26 MEQ/L (21-32); CHLORIDE LEVEL 105 MEQ/L (98-107); CREATININE FOR GFR 1.68 MG/DL (0.70-1.30); GLOMERULAR FILTRATION RATE 42.7 (>42); GLUCOSE, FASTING 116 MG/DL (70-100); MAGNESIUM LEVEL 2.7 MG/DL (1.8-2.4); PHOSPHORUS LEVEL 2.6 MG/DL (2.5-4.9); SODIUM LEVEL 140 MEQ/L (136-145)
[2018-06-16 20:48] LABS: POTASSIUM SERUM 5.2 MEQ/L (3.5-5.1)
[2018-06-16] MEDS: CALCIUM GLUCONATE 1,000 MG in NS MINI-BAG PLUS 100 ML IV (21:45)
[2018-06-16] MEDS: POLYVINYL ALCOHOL OPHTH SOLN 15 ML(LIQUITEARS) OU (21:46)
[2018-06-16] MEDS: rOPINIRole 1MG TAB PO (21:46)
[2018-06-17] MEDS: IPRATROPIUM 0.5MG/ALBUTEROL 2.5MG INH SOL UD 3ML (DUONEB)(J7620) NEB ×4 (01:01→20:33)
[2018-06-17 04:18] LABS: IONIZED CALCIUM 4.9 MG/DL (4.5-5.3)
[2018-06-17 04:20] LABS: HEMATOCRIT 34.4 % (42.0-52.0); HEMOGLOBIN 11.7 g/dl (13.5-17.5); MEAN CORPUSCULAR HEMOGLOBIN 29.9 pg (27.0-33.0); PLATELET COUNT, AUTOMATED 165 10^3/uL (150-450); RED BLOOD COUNT 3.91 10^6/uL (4.30-6.10); RED CELL DISTRIBUTION WIDTH 19.6 % (11.5-14.5); WHITE BLOOD COUNT 20.1 10^3/uL (4.0-10.0)
[2018-06-17 04:28] LABS: PARTIAL THROMBOPLASTIN TIME 38.4 SECONDS (25.4-37.6)
[2018-06-17 04:40] LABS: ANION GAP 8 MEQ/L (8-16); BLOOD UREA NITROGEN 28 MG/DL (7-18); CALCIUM LEVEL 8.9 MG/DL (8.8-10.2); CARBON DIOXIDE LEVEL 28 MEQ/L (21-32); CHLORIDE LEVEL 104 MEQ/L (98-107); CREATININE FOR GFR 1.65 MG/DL (0.70-1.30); GLOMERULAR FILTRATION RATE 43.6 (>42); GLUCOSE, FASTING 97 MG/DL (70-100); MAGNESIUM LEVEL 2.6 MG/DL (1.8-2.4); PHOSPHORUS LEVEL 2.7 MG/DL (2.5-4.9); POTASSIUM SERUM 4.4 MEQ/L (3.5-5.1); SODIUM LEVEL 140 MEQ/L (136-145)
[2018-06-17] MEDS: LEVOTHYROXINE 50MCG TABLET (0.05MG) PO (06:25)
[2018-06-17] MEDS: HEPARIN SOD (PORCINE) 5000 UNITS/ML VIAL SC ×3 (06:25→21:00)
[2018-06-17] MEDS: ISOSORBIDE DIN (ISORDIL) 10 MG TAB PO ×2 (06:27→12:00)
[2018-06-17] MEDS: **hydrALAZINE** 10 MG TAB PO ×2 (06:27→14:00)
[2018-06-17] MEDS: FERROUS SULFATE 325MG TAB PO (08:30)
[2018-06-17] MEDS: ENTRESTO 24-26MG TABLET (SACUBITRIL/VALSARTAN) PO ×2 (08:30→20:57)
[2018-06-17] MEDS: CARVedilol 3.125 MG TAB PO ×2 (08:30→20:57)
[2018-06-17] MEDS: guaiFENesin ER 600 MG TAB PO (08:30)
[2018-06-17] MEDS: CALCITRIOL 0.25 MCG CAP (S0169) PO (08:30)
[2018-06-17] MEDS: MULTIVITAMINS/MINERALS THERAP 1 TAB PO (08:31)
[2018-06-17] MEDS: SENOKOT S TAB PO ×2 (08:31→20:55)
[2018-06-17] MEDS: AZITHROMYCIN INJ 500 MG, VIAL MATE ADAPTER 1 EACH in NS 250 ML IV (10:32)
[2018-06-17] MEDS: cefTRIAXone SOD 1 GM in NS MINI-BAG PLUS 50 ML IV (11:56)
[2018-06-17 12:13] LABS: IONIZED CALCIUM 4.7 MG/DL (4.5-5.3)
[2018-06-17 12:56] LABS: ALBUMIN 2.3 GM/DL (3.2-5.2); ALBUMIN/GLOBULIN RATIO 0.62 (1.00-1.93); ALKALINE PHOSPHATASE 137 U/L (45-117); ALT/SGPT 295 U/L (12-78); ANION GAP 8 MEQ/L (8-16); AST/SGOT 293 U/L (7-37); BILIRUBIN,DIRECT 1.5 MG/DL (0.0-0.2); BILIRUBIN,TOTAL 1.9 MG/DL (0.2-1.0); BLOOD UREA NITROGEN 30 MG/DL (7-18); CALCIUM LEVEL 8.8 MG/DL (8.8-10.2); CARBON DIOXIDE LEVEL 27 MEQ/L (21-32); CHLORIDE LEVEL 106 MEQ/L (98-107); GLOMERULAR FILTRATION RATE 39.5 (>42); GLUCOSE, FASTING 95 MG/DL (70-100); HEMATOCRIT 34.8 % (42.0-52.0); HEMOGLOBIN 11.8 g/dl (13.5-17.5); MAGNESIUM LEVEL 2.5 MG/DL (1.8-2.4); MEAN CORPUSCULAR HEMOGLOBIN 30.6 pg (27.0-33.0); MEAN CORPUSCULAR HGB CONC 33.9 g/dl (32.0-36.5); MEAN CORPUSCULAR VOLUME 90.2 fl (80.0-96.0); PHOSPHORUS LEVEL 3.2 MG/DL (2.5-4.9); PLATELET COUNT, AUTOMATED 154 10^3/uL (150-450); POTASSIUM SERUM 4.4 MEQ/L (3.5-5.1); RED BLOOD COUNT 3.86 10^6/uL (4.30-6.10); RED CELL DISTRIBUTION WIDTH 19.9 % (11.5-14.5); SODIUM LEVEL 141 MEQ/L (136-145); WHITE BLOOD COUNT 17.2 10^3/uL (4.0-10.0)
[2018-06-17] MEDS: CLOPIDOGREL 75 MG TAB PO (14:15)
[2018-06-17] MEDS ORDERED: PILL CRUSHER/CUTTER 1 EACH XX (16:15)
[2018-06-17 16:21] LABS: LACTIC ACID SEPSIS PROTOCOL 1.1 MMOL/L (0.4-2.0)
[2018-06-17 17:01] LABS: ABG BASE EXCESS 2.2 (-2.0-2.0); ABG HCO3 25.2 MEQ/L (22.0-26.0); ABG O2 SATURATION 95.6 % (95.0-99.0); ABG PARTIAL PRESSURE CO2 34.1 mmHg (35.0-45.0); ABG PARTIAL PRESSURE O2 74.4 mmHg (75.0-100.0); ABG STANDARD HCO3 26.4 MEQ/L (22.0-26.0); ABG TOTAL CO2 26.3 MEQ/L (23.0-31.0); ABG pH (ARTERIAL) 7.487 UNITS (7.350-7.450)
[2018-06-17] MEDS: rOPINIRole 1MG TAB PO (20:55)
[2018-06-17] MEDS: ATORVASTATIN 20 MG TAB PO (20:55)
[2018-06-17] MEDS: guaiFENesin 200 MG TAB PO (20:55)
[2018-06-17] MEDS: POLYVINYL ALCOHOL OPHTH SOLN 15 ML(LIQUITEARS) OU (21:00)
[2018-06-17] MEDS: LATANOPROST 0.005% OPHTH SOLN 2.5 ML OU (21:00)
[2018-06-18] MEDS: guaiFENesin 200 MG TAB PO ×6 (00:13→20:59)
[2018-06-18] MEDS: IPRATROPIUM 0.5MG/ALBUTEROL 2.5MG INH SOL UD 3ML (DUONEB)(J7620) NEB ×4 (00:41→21:16)
[2018-06-18 00:45] LABS: ABG BASE EXCESS -0.3 (-2.0-2.0); ABG HCO3 22.1 MEQ/L (22.0-26.0); ABG O2 SATURATION 98.1 % (95.0-99.0); ABG PARTIAL PRESSURE CO2 29.6 mmHg (35.0-45.0); ABG PARTIAL PRESSURE O2 96.1 mmHg (75.0-100.0); ABG STANDARD HCO3 24.3 MEQ/L (22.0-26.0); ABG pH (ARTERIAL) 7.491 UNITS (7.350-7.450)
[2018-06-18 04:35] LABS: BASO # 0.1 10^3/uL (0.0-0.2); BASO % 0.3 % (0.0-1.0); EOS % 0.1 % (0.0-3.0); HEMATOCRIT 36.6 % (42.0-52.0); HEMOGLOBIN 12.4 g/dl (13.5-17.5); IMMATURE GRANULOCYTE % 2.4 % (0-3.0); LYMPH % 5.8 % (24.0-44.0); MEAN CORPUSCULAR HEMOGLOBIN 30.4 pg (27.0-33.0); MEAN CORPUSCULAR HGB CONC 33.9 g/dl (32.0-36.5); MEAN CORPUSCULAR VOLUME 89.7 fl (80.0-96.0); MONO % 5.4 % (0.0-5.0); NEUTROPHILS # 15.5 10^3/uL (1.8-7.7); PLATELET COUNT, AUTOMATED 180 10^3/uL (150-450); RED BLOOD COUNT 4.08 10^6/uL (4.30-6.10); RED CELL DISTRIBUTION WIDTH 19.6 % (11.5-14.5)
[2018-06-18 04:55] LABS: PARTIAL THROMBOPLASTIN TIME 40.7 SECONDS (25.4-37.6)
[2018-06-18 05:03] LABS: ALBUMIN 2.2 GM/DL (3.2-5.2); ALBUMIN/GLOBULIN RATIO 0.48 (1.00-1.93); ALKALINE PHOSPHATASE 136 U/L (45-117); ALT/SGPT 257 U/L (12-78); ANION GAP 10 MEQ/L (8-16); AST/SGOT 270 U/L (7-37); BILIRUBIN,TOTAL 1.5 MG/DL (0.2-1.0); BLOOD UREA NITROGEN 59 MG/DL (7-18); CARBON DIOXIDE LEVEL 24 MEQ/L (21-32); CHLORIDE LEVEL 105 MEQ/L (98-107); CREATININE FOR GFR 3.43 MG/DL (0.70-1.30); GLOMERULAR FILTRATION RATE 18.8 (>42); GLUCOSE, FASTING 99 MG/DL (70-100); PHOSPHORUS LEVEL 4.6 MG/DL (2.5-4.9); SODIUM LEVEL 139 MEQ/L (136-145); TOTAL PROTEIN 6.8 GM/DL (6.4-8.2)
[2018-06-18] MEDS: LEVOTHYROXINE 50MCG TABLET (0.05MG) PO (05:14)
[2018-06-18] MEDS: HEPARIN SOD (PORCINE) 5000 UNITS/ML VIAL SC ×3 (05:33→21:33)
[2018-06-18 06:42] LABS: AMMONIA < 10 uMOL/L (<32)
[2018-06-18 08:27] LABS: NT-PRO BNP 4417 PG/ML (<125)
[2018-06-18] MEDS: SENOKOT S TAB PO ×2 (09:00→20:59)
[2018-06-18] MEDS: ENTRESTO 24-26MG TABLET (SACUBITRIL/VALSARTAN) PO ×2 (09:00→20:57)
[2018-06-18] MEDS: CARVedilol 3.125 MG TAB PO ×2 (09:00→20:57)
[2018-06-18] MEDS: CALCITRIOL 0.25 MCG CAP (S0169) PO (09:00)
[2018-06-18] MEDS: FERROUS SULFATE 300MG/5ML UDC LIQUID PO (09:00)
[2018-06-18] MEDS: MULTIVITAMIN/MINERALS LIQUID 15ML ORAL SYRINGE PO (09:00)
[2018-06-18] MEDS: NS 250 ML IV (09:53)
[2018-06-18] MEDS: CLOPIDOGREL 75 MG TAB PO (13:34)
[2018-06-18] MEDS ORDERED: ISOVUE-370 76% 100ML VIAL (Q9967) As Ordered (15:09)
[2018-06-18] MEDS: ATORVASTATIN 20 MG TAB PO (20:58)
[2018-06-18] MEDS: rOPINIRole 1MG TAB PO (20:58)
[2018-06-18] MEDS: POLYVINYL ALCOHOL OPHTH SOLN 15 ML(LIQUITEARS) OU (21:02)
[2018-06-18] MEDS: LATANOPROST 0.005% OPHTH SOLN 2.5 ML OU (21:02)
[2018-06-18] MEDS: D5W/0.45% SODIUM CHLORIDE 1,000 ML IV (22:00)
[2018-06-19] MEDS: guaiFENesin 200 MG TAB PO ×5 (00:13→17:00)
[2018-06-19] MEDS: IPRATROPIUM 0.5MG/ALBUTEROL 2.5MG INH SOL UD 3ML (DUONEB)(J7620) NEB ×3 (02:20→15:18)
[2018-06-19 05:08] LABS: HEMATOCRIT 36.2 % (42.0-52.0); HEMOGLOBIN 12.2 g/dl (13.5-17.5); MEAN CORPUSCULAR HEMOGLOBIN 30.4 pg (27.0-33.0); MEAN CORPUSCULAR HGB CONC 33.7 g/dl (32.0-36.5); MEAN CORPUSCULAR VOLUME 90.3 fl (80.0-96.0); PLATELET COUNT, AUTOMATED 191 10^3/uL (150-450); RED BLOOD COUNT 4.01 10^6/uL (4.30-6.10); RED CELL DISTRIBUTION WIDTH 19.2 % (11.5-14.5); WHITE BLOOD COUNT 18.8 10^3/uL (4.0-10.0)
[2018-06-19 05:26] LABS: PARTIAL THROMBOPLASTIN TIME 37.9 SECONDS (25.4-37.6)
[2018-06-19 05:47] LABS: ALBUMIN/GLOBULIN RATIO 0.41 (1.00-1.93); ALKALINE PHOSPHATASE 130 U/L (45-117); ALT/SGPT 251 U/L (12-78); ANION GAP 15 MEQ/L (8-16); AST/SGOT 356 U/L (7-37); BILIRUBIN,DIRECT 0.8 MG/DL (0.0-0.2); BILIRUBIN,TOTAL 1.3 MG/DL (0.2-1.0); BLOOD UREA NITROGEN 101 MG/DL (7-18); CALCIUM LEVEL 8.6 MG/DL (8.8-10.2); CARBON DIOXIDE LEVEL 20 MEQ/L (21-32); CHLORIDE LEVEL 105 MEQ/L (98-107); CREATININE FOR GFR 5.62 MG/DL (0.70-1.30); GLOMERULAR FILTRATION RATE 10.6 (>42); GLUCOSE, FASTING 110 MG/DL (70-100); PHOSPHORUS LEVEL 7.1 MG/DL (2.5-4.9); SODIUM LEVEL 140 MEQ/L (136-145); TOTAL PROTEIN 6.9 GM/DL (6.4-8.2)
[2018-06-19] MEDS: LEVOTHYROXINE 50MCG TABLET (0.05MG) PO (05:50)
[2018-06-19 05:59] LABS: POTASSIUM SERUM 5.6 MEQ/L (3.5-5.1)
[2018-06-19 06:00] LABS: TROPONIN I 1.74 NG/ML (< 0.10)
[2018-06-19] MEDS: LEVOTHYROXINE 100 MCG (0.1MG) VIAL IV (06:00)
[2018-06-19] MEDS: HEPARIN SOD (PORCINE) 5000 UNITS/ML VIAL SC ×2 (06:09→14:00)
[2018-06-19] MEDS: MULTIVITAMIN/MINERALS LIQUID 15ML ORAL SYRINGE PO (09:00)
[2018-06-19] MEDS: ENTRESTO 24-26MG TABLET (SACUBITRIL/VALSARTAN) PO (09:00)
[2018-06-19] MEDS: SENOKOT S TAB PO (09:00)
[2018-06-19] MEDS: FERROUS SULFATE 300MG/5ML UDC LIQUID PO (09:00)
[2018-06-19] MEDS: CARVedilol 3.125 MG TAB PO (09:00)
[2018-06-19] MEDS: HEPARIN 1,000 UNITS/ML 10ML VIAL (FOR RADIOLOGY& DIALYSIS ONLY) XX (10:45)
[2018-06-19] MEDS: CLOPIDOGREL 75 MG TAB PO (13:42)
[2018-06-19] MEDS ORDERED: ISOVUE-370 76% 100ML VIAL (Q9967) As Ordered (14:48)
[2018-06-19] MEDS: SODIUM CHLORIDE 0.9% 1000 ML IV (15:15)
[2018-06-19] MEDS ORDERED: VANCOMYCIN INTERMITTENT/PULSE DOSING BY CLINICAL PHARMACIST PER DOSING PROTOCOL XX (15:30)
[2018-06-19 16:21] LABS: AMMONIA < 10 uMOL/L (<32)
[2018-06-19 16:25] LABS: LACTIC ACID SEPSIS PROTOCOL 0.7 MMOL/L (0.4-2.0)
[2018-06-19] MEDS ORDERED: ASPIRIN 300 MG SUPP PR (16:30)
[2018-06-19] MEDS: D5W/0.45% SODIUM CHLORIDE 1,000 ML IV (18:49)
[2018-06-19] MEDS: MORPHINE 4 MG/ML 1ML VIAL/SYRINGE (J2270) IV ×2 (19:26→22:33)
[2018-06-19] MEDS: SCOPOLAMINE 1MG TRANSDERMAL PATCH TOP (19:26)
[2018-06-19] MEDS ORDERED: MEROPENEM INJ 500 MG in APPROPRIATE DILUENT 1 EA IV (21:00)
[2018-06-19] MEDS ORDERED: VANCOMYCIN HCL 1,000 MG, VIAL MATE ADAPTER 1 EACH in D5W 250 ML IV (22:00)
[2018-06-19] MEDS: VANCOMYCIN HCL 500 MG in D5W MINI-BAG PLUS 100 ML IV (23:00)
[2018-06-20] MEDS: MORPHINE 4 MG/ML 1ML VIAL/SYRINGE (J2270) IV (08:05)
[2018-06-20] MEDS: LORazepam 2 MG/ML VIAL (J2060) IV (08:31)
== END 2018-06-20 09:55 | disposition expired | DRG 673 ==
LOC: M PCU 06-12 16:39 → M ICU 06-12 19:14 → M ED 16:02 → M ED INP 20:26 → M MSPAV 23:13
PROVIDERS: Internal Medicine
PROC: 0JH63XZ Insertion of Tunneled Vascular Access Device into Chest Subcutaneous Tissue and Fascia, Percutaneous Approach (ICD-10-PCS; principal; 2018-06-12)
PROC: 02HV33Z Insertion of Infusion Device into Superior Vena Cava, Percutaneous Approach (ICD-10-PCS; 2018-06-12)
PROC: 5A1D90Z Performance of Urinary Filtration, Continuous, Greater than 18 hours Per Day (ICD-10-PCS; 2018-06-12)
PROC: B5131ZA Fluoroscopy of Right Jugular Veins using Low Osmolar Contrast, Guidance (ICD-10-PCS; 2018-06-12)
DX: N17.9 Acute kidney failure, unspecified (principal); J96.01 Acute respiratory failure with hypoxia; I63.9 Cerebral infarction, unspecified; G03.9 Meningitis, unspecified; I50.43 Acute on chronic combined systolic (congestive) and diastolic (congestive) heart failure; I21.4 Non-ST elevation (NSTEMI) myocardial infarction; J18.9 Pneumonia, unspecified organism; I13.2 Hypertensive heart and chronic kidney disease with heart failure and with stage 5 chronic kidney disease, or end stage renal disease; E87.1 Hypo-osmolality and hyponatremia; J44.1 Chronic obstructive pulmonary disease with (acute) exacerbation; J44.0 Chronic obstructive pulmonary disease with (acute) lower respiratory infection; E72.20 Disorder of urea cycle metabolism, unspecified; G81.92 Hemiplegia, unspecified affecting left dominant side; N18.6 End stage renal disease; N25.81 Secondary hyperparathyroidism of renal origin; Z66 Do not resuscitate; Z51.5 Encounter for palliative care; N28.1 Cyst of kidney, acquired; I25.10 Atherosclerotic heart disease of native coronary artery without angina pectoris; E80.6 Other disorders of bilirubin metabolism; D41.01 Neoplasm of uncertain behavior of right kidney; I34.0 Nonrheumatic mitral (valve) insufficiency; I48.0 Paroxysmal atrial fibrillation; K76.1 Chronic passive congestion of liver; E87.5 Hyperkalemia; I35.1 Nonrheumatic aortic (valve) insufficiency; K59.00 Constipation, unspecified; G25.81 Restless legs syndrome; D63.1 Anemia in chronic kidney disease; H40.9 Unspecified glaucoma; D50.9 Iron deficiency anemia, unspecified; E11.22 Type 2 diabetes mellitus with diabetic chronic kidney disease; G47.33 Obstructive sleep apnea (adult) (pediatric); E03.9 Hypothyroidism, unspecified; Z95.810 Presence of automatic (implantable) cardiac defibrillator; Z79.899 Other long term (current) drug therapy; Z79.02 Long term (current) use of antithrombotics/antiplatelets; Z88.6 Allergy status to analgesic agent; Z88.8 Allergy status to other drugs, medicaments and biological substances; Z95.5 Presence of coronary angioplasty implant and graft; Z87.891 Personal history of nicotine dependence